=== PATIENT | male | born 1960 | race Caucasian/White ===

== ENCOUNTER → 2024-07-18 12:04 | Outpatient (REF) | payer MEDICARE, SELFPAY | LOC: HWRAD 12:04 | PROVIDERS: ATTENDING PHYSICIAN Physician Assistant Medical | DX: J18.9 Pneumonia, unspecified organism (principal) | CPT/HCPCS: 71046 ==

== ENCOUNTER 2024-10-28 22:50 | Inpatient (IN) | payer MEDICARE, SELFPAY ==
[2024-10-28] VITALS (8 sets, daily range): BP systolic 106–184; BP diastolic 66–137; BMI 37.3
[2024-10-28 18:17] LABS: % Basophils 0.7 % (0-2); % Eosinophils 2.6 % (0-6); % Immature Granulocytes 0.3 % (0-0.5); % Lymphocytes 26.9 % (20.5-51.1); % Monocytes 7.1 % (1.7-9.3); % Neutrophils 62.4 % (42.2-75.2); Absolute Basophils 0.1 10^3/uL (0-0.2); Absolute Eosinophils 0.2 10^3/uL (0-0.7); Absolute Lymphocytes 2.4 10^3/uL (1.2-3.4); Absolute Monocytes 0.6 10^3/uL (0.1-0.6); Absolute Neutrophils 5.5 10^3/uL (1.4-6.5); Hematocrit 43.4 % (39.0-52.0); Hemoglobin 14.1 g/dL (13.0-18.0); Mean Corp Hgb Conc. 32.5 g/dL (33.0-37.0); Mean Corpuscular Volume 95.4 fL (80.0-94.0); Mean Platelet Volume 10.5 fL (7.4-10.4); Nucleated Red Blood Cells % 0 % (-); Platelet Count 196 10^3/uL (130-400); Red Blood Cell Count 4.55 10^6/uL (4.70-6.10); Red Cell Dist. Width 12.7 % (11.5-14.5); White Blood Cell Count 8.9 10^3/uL (4.8-10.8)
[2024-10-28 18:31] LABS: ALT (SGPT) 19 U/L (0-50); AST (SGOT) 17 U/L (17-59); Albumin 4.2 g/dl (3.5-5.0); Alkaline Phosphatase 50 U/L (38-126); Blood Urea Nitrogen 22 mg/dl (9-20); Calcium 9.6 mg/dl (8.4-10.2); Carbon Dioxide 27 mmol/L (22-30); Chloride 109 mmol/L (98-107); Glucose 222 mg/dl (70-99); Sodium 142 mmol/L (135-145); Total Bilirubin 0.7 mg/dl (0.2-1.3); Total Protein 7.7 g/dl (6.3-8.2); eGFR > 60.00
[2024-10-28 18:40] LABS: Troponin I 0.478 ng/ml
[2024-10-28 20:26] LABS: NT-proBNP 2260 pg/ml
[2024-10-28] MEDS: LOW STRENGTH ASPIRIN 324 MG PO (20:35)
[2024-10-28] MEDS: LASIX 40 MG IV (20:35)
--- NOTE | 2024-10-28 21:24 | CON.CAR ---
Consultation
Consultation Request
Date/Time Consultation Requested: 10/28/24 0930
Date/Time Consultation Performed: 10/28/34 1000
Requesting Provider: Dr Dyer
Performing Provider: Dr Ojeda
Reason for Consultation: HF and abnormal troponin
Medical History
-
History of Present Illness:
64 year old with history of HTN, DM, aifb ( episode 2007), nonischemic CM prior DVT and IVC filter who presents with shortness of breath patient's noticed some shortness of breath this week mostly notices it in the morning when he gets up to walk
around but says it is fine the rest of the day. A couple nights ago he woke up to the go go to the bathroom and and was short of breath and then sat up in a chair. However this was the only night that he had shortness of breath. Today he walked
from the car to [facility] and after he sat down noticed he was short of breath and decided to come to the ER. He denies having chest pain or chest discomfort he has had some intermittent fullness that is in the epigastrium. Episodes are random and
last 5 minutes last episode about 2 days ago. He tends to have GI symptoms with some distention and sometimes symptoms are improved with belching he also has had fluctuating constipation and diarrhea.
He has not seen a safe and vault service mechanic since 2012. Last visit was with Dr. Finney in the past he was noted to have a nonischemic cardiomyopathy and there are varying measures of his ejection fraction. Echocardiogram in August 2012 with EF 45 to 50%,
cardiac catheterization with ejection fraction 39%, echocardiogram February 2013 with ejection fraction 25% and then a MUGA scan in April 2013 with ejection fraction of 51%
seen by Dr Rodriguez in [place] . Last visit . he had prior nonischmic CM, mild CAD by cath. he had echo with redeced LVF and then a couple months later had MUGA scan with EF 51%
Has not seen a safe and vault service mechanic in many years
PMH
HTN,
DM,
aifb ( episode 2007),
previous nonischemic CM
prior DVT
IVC filter
ECG NSR with IVCD and no acute changes
CXR 10/28/24 cephalizationa dn small pleural effusions
cath 2012 EF 39% LAD 20%, idagonal 4050%. LCX [place] irreg. RCA luminal irreg
echo 08/2012 EF 45-50%
echo with definity 02/2013 EF 25%
Muga 04/2013 EF 51%
Past Medical History
Past Medical History: Other (as noted in HPI)
Social History
Tobacco: Non-Smoker
Family History
Family History: Cancer (Mother with lung cancer)
Allergies / Home Medications
Allergy/AdvReac Type Severity Reaction Status Date / Time
Penicillins Allergy Anaphylaxis Verified 10/28/24 17:46
Tetanus Vaccines and Toxoid Allergy Anaphylaxis Verified 10/28/24 17:46
[Tetanus]
�Medication �Instructions �Recorded �Confirmed �Type
lisinopril 10 mg tablet 10 mg PO DAILY 06/23/13 10/28/24 History
metformin 500 mg tablet 1,000 mg PO BID 06/23/13 10/28/24 History
aspirin 81 mg tablet,delayed 81 mg PO DAILY 10/28/24 10/28/24 History
release
bexagliflozin 20 mg tablet 20 mg PO DAILY 10/28/24 10/28/24 History
(Brenzavvy)
calcium carbonate 500 mg PO DAILY 10/28/24 10/28/24 History
cholecalciferol (vitamin D3) 25 25 mcg PO DAILY 10/28/24 10/28/24 History
mcg (1,000 unit) tablet (Vitamin
D3)
cranberry fruit 450 mg tablet 450 mg PO DAILY 10/28/24 10/28/24 History
(cranberry)
cyanocobalamin (vitamin B-12) 1,000 mcg PO DAILY 10/28/24 10/28/24 History
1,000 mcg tablet
garlic 400 mg tablet 400 mg PO DAILY 10/28/24 10/28/24 History
glipizide 10 mg tablet, extended 10 mg PO DAILY 10/28/24 10/28/24 History
release 24 hr
glucosamine sulf dipot 1 cap PO DAILY 10/28/24 10/28/24 History
chlr,msm,chond 550 mg-C 30 mg-ervin
1 mg capsule (Glucosamine
Chondroitin)
omega 9-kcj-tsn-fish oil 1,000 mg 1 cap PO DAILY 10/28/24 10/28/24 History
(120 mg-180 mg) capsule (Fish Oil)
therapeutic multivitamin 1 tab PO DAILY 10/28/24 10/28/24 History
vitamin A 3,000 mcg (10,000 unit) 3,000 mcg PO DAILY 10/28/24 10/28/24 History
capsule
zinc sulfate 50 mg zinc (220 mg) 50 mg PO DAILY 10/28/24 10/28/24 History
tablet
Review of Systems
-
All other systems: Negative unless noted
Physical Exam
Vital Signs
Temp Pulse Resp BP Pulse Ox
98.1 F 76 22 126/94 96
10/28/24 17:47 10/28/24 17:47 10/28/24 17:47 10/28/24 19:37 10/28/24 17:47
Lab Results
10/28/24 18:05
10/28/24 18:05
Troponin I 0.478 ng/ml H* 10/28/24 18:05
Oeq-N-Dktmvibbjuh Pept 2260 pg/ml 10/28/24 18:05
Physical Exam
General: Other (Awake alert cooperative no acute distress)
HEENT: Normocephalic, Anicteric and Other (Extraocular was intact external ear and oral exam unremarkable)
Respiratory: Other (No wheezes rales or rhonchi)
Cardiac: Regular Rhythm (No murmur rub or gallop)
GI: Soft, Non Tender, Non Distended and Other (No masses or Passman megaly detected.)
Musculoskeletal: No Clubbing, No Cyanosis and Other (Mild edema right greater than left)
Neuro: Awake, Alert and Oriented
Hematologic/Lymphatic: No Lymphadenopathy
Psych: Calm
Impression / Plan
-
.
Shortness of breath. Symptoms noted for a week. Chest x-ray report with cephalization and small effusions patient also with elevation in BNP. Also with prior history of nonischemic cardiomyopathy. All the above are suggestive of acute left heart
failure. Patient has not had a cardiac evaluation since 2013 prior history of nonischemic cardiomyopathy with a lot of variability of the measured EF's as noted in HPI.
- Diuresis with IV Lasix. Will assess response of dose that was already given. Patient seems to be having significant output
- Aspirin
- Serial troponins
- Echocardiogram this admission
- Will need additional assessment for coronary artery disease
.
Elevated troponin. Number one 0.478 number two 0.467 exact cause of troponin elevation unclear. Patient's had some intermittent epigastric fullness this week. Pattern is atypical. Not associated with exertion, not associated with shortness of
breath and but it is associated with a lot of his GI symptomatology. Not clear that this represents angina. Will monitor for recurrent symptoms
- Continue to monitor troponins to see that they are truly trending downward as the second troponin would suggest
- Echocardiogram this admission.
- With prior history of mild nonobstructive coronary artery disease and presentation with CHF I would favor cardiac catheterization this admission
-Lipid profile
.
Diabetes. Management as directed by primary team
.
Hypertension. Blood pressure currently stable. Monitor.
.
Distant h/o DVT and IVC filter (post hip surgery)
Data Reviewed
-
EKG: Tracing Personally Visualized and interpreted
Medical Tests (Nuc Med, Echo etc): Report Reviewed by me
Labs: Labs Reviewed by me
Old Records: Reviewed (reviewed prior records from last [facility] office visit 2012)
--- NOTE | 2024-10-28 21:24 | ED.GENMED ---
History of Present Illness
General
Chief Complaint: Chest Pain
Source: patient and spouse
Time Seen by Provider: 10/28/24 19:10
History of Present Illness
History of Present Illness:
64-year-old male presents to the emergency room complaining of fullness in his chest, irregular heartbeat, some shortness of breath. Patient has been experiencing some shortness of breath particularly In the morning. When he exerts himself in the
morning he feels more short of breath but this does start to feel better after as the morning progresses. Patient also has a sensation of fullness which seem to occur while he was ambulating today. He and his are getting ready to go out
somewhere and decided he needed to come get Checked out because of the shortness of breath and fullness. Patient had an episode of indigestion and fullness about a week ago while visiting his son. He assumed this was related to something he ate
but he has not felt 100% since then.
Past History
Past History
ED Past Medical History: Arrthythmia (Atrial fibrillation), HTN, NIDDM and Other (Avascular necrosis of both hips)
ED Past Surgical History: Other (History of vasectomy, cardioversion for A. fib)
Social History
Tobacco: Non-smoker
Alcohol: None
Drug: None
Personal:
Living: with family
Employment: Employed
Family History
Family History: Other
Phy Exam
Physical Exam
Physical Exam:
General: Awake, Alert, Oriented X3. No acute distress. High BMI
Vitals: Normotensive perhaps slightly tachypneic
Head: Atraumatic
Eyes: Pupils equal, EOMI
Throat: Airway intact, no exudates
Neck: Trachea midline
Lungs: Crackles bilateral bases
Heart: Regular rate, no murmurs
Abd: Soft, Nontender, No pulsatile mass
Neuro: Nonfocal
Skin: Warm, dry, no rash
Extremities: pulses equal b/l, 2+ edema
Scores
Heart Score for Chest Pain Patients
STEMI patient?: No
History: Moderately Suspicious
ECG: Nonspecific Repolarization
Age: >/= 65 years
Risk Factors: >/= 3 Risk Factors or History of CAD
Troponin: >/= 3 x Normal Limit
Heart Score for Chest Pain Patients: 8
Heart Score Risk: 72.7 % MACE over next 6 weeks
Course
Orders/Labs/Results
Orders:
Orders
10/28/24 17:40
EKG [Electrocardiogram (*1)] Urgent
Reason for Study: Chest Pain
EKG- Treatment ONCE
10/28/24 17:50
Cardiac Monitoring- Treatment ONCE
IV Insert/Care/Rem.- Treatment PRN
O2 Therapy [RESP] Urgent
Titrate/Wean O2 to maintain O2 sat greater than (%): 90
Special Instructions: Maintain sats >/=90%
Pulse Ox/spot Check [RESP] Urgent
Quantity: 1
Special Instructions: ON ROOM AIR
10/28/24 18:05
Complete Blood Count/With Diff Urgent
Comprehensive Metabolic Panel Urgent
NT-proBNP Urgent
Comment: ADD ON
TSH Reflex To Free T4 Urgent
Comment: ADD ON
Troponin I Urgent
10/28/24 19:19
Electrocardiogram (*1) Urgent
Reason for Study: Chest Pain
EKG- Treatment ONCE
10/28/24 19:23
Add On- LAB Urgent
Tests Added?: bnp
CR Chest - 2 Views Urgent
Comment:
Reason For Exam: sob, chest discomfort
10/28/24 20:26
Furosemide [Lasix] 40 mg IV NOW STA
10/28/24 20:27
Aspirin Chewable [Low Strength Aspirin] 324 mg PO NOW STA
10/28/24 21:25
EKG [Electrocardiogram (*1)] Urgent
Reason for Study: Chest Pain
10/28/24 21:36
Troponin I Urgent
10/28/24 21:49
Add On- LAB Urgent
Tests Added?: tsh with rogerio t4
10/28/24 21:53
Heparin 4,000 units IV NOW STA
Nursing to Place Non Medication Order As Directed
Physician Order: PTT 6 hours after initial start of Heparin infusion
10/28/24 21:59
PTT Urgent
Comment: Obtain baseline before beginning heparin infusion if not already collected
10/28/24 22:00
Heparin 38267 Units/250 ml 25,000 units in 250 ml IV PER PROTOCOL
Weight to be used for heparin protocol in kilograms (kg):: 135.5
Protocol:: Cardiac Tx/Acute Coronary
PTT Goal Range to be used:: PTT 73 to 111 seconds
Order type:: Initial
INITIAL Infusion Dose (UNITS/KG/hr) & then follow protocol:: 12 units/kg/hr
Infusion Dose in UNITS/hr & then follow protocol (UNITS/hr):: 1,000
INFUSION RATE in mL/hr & then follow protocol (mL/hr):: 10
PTT less than or equal to 64 seconds:: Increase rate by 200 units/hr (+ 2 mL/hr)
PTT 64.1 to 72.9 seconds:: Increase rate by 100 units/hr (+ 1 mL/hr)
PTT 73 to 111 seconds:: Target Range. No change in rate.
PTT 111.1 to 130.9 seconds:: Decrease rate by 100 units/hr (- 1 mL/hr)
PTT 131 to 199.9 seconds:: HOLD for 1 hr. Then decrease rate by 200 units/hr (- 2 mL/hr)
PTT greater than or equal to 200 seconds:: HOLD for 2 hrs & Notify Provider. Then decrease by 200 units/hr (-
2 mL/hr)
Lab follow-up:: Each change, PTT q6h until 2 consecutive are therapeutic. Then PTT
daily.
10/28/24 22:36
Admit/Transfer Patient As Directed
Co-Sign Provider:
Level of Care: Inpatient admission
Assign to:: Telemetry
Physician / Group: tam arredondo
Diagnosis: acute chf, conc cardiomyopathy, nstemi
Reason for Telemetry: Acute Heart Failure
Date to Stop Telemetry: 10/31/24
Time to Stop Telemetry: 11:00
Reason for Hospitalization: acute chf, conc cardiomyopathy, nstemi
Expected length of stay greater than two midnights?: Yes
ELOS- Estimated Length of Stay in days: 3
I certify the patient meets the requirements for IP care: Yes
Code Status As Directed
Resuscitation Status: Full Code
CARDIOLOGY CONSULT Routine
Consulting Provider: Mo Ojeda
Was physician already notified: Yes
Reason for consult: acute chf, nstemi
10/28/24 22:39
PRN Pain Medication Management As Directed
May give lesser potent ordered pain med per pt: Yes
preference::
Protocol:: Medication orders for pain may be administered in a
manner that supports deferring to patient preference
when the pt is:
- Requesting an ordered lesser potent pain medication.
Least to most potent pain medications are defined
as: acetaminophen < NSAID < tramadol < opioids
(morphine, oxycodone, hydromorphone).
- Requesting a lesser dose of the same medication IF
ORDERED.
- Requesting a less intrusive route of administration
if both routes are prescribed by the provider (PO <
IV).
10/28/24 23:00
Flush (0.9% Sodium Chloride) [Flush (Nss)] See Dose Instructions IV PER PROTOCOL
10/29/24 00:30
Troponin I Urgent
10/31/24 11:00
DC Protocol for Telemetry ONCE
Abnormal Lab Results
10/28/24 10/28/24
18:05 21:36
RBC 4.55 L 10^6/uL
(4.70-6.10)
MCV 95.4 H fL
(80.0-94.0)
MCHC 32.5 L g/dL
(33.0-37.0)
MPV 10.5 H fL
(7.4-10.4)
Chloride 109 H mmol/L
(98-107)
BUN 22 H mg/dl
(9-20)
Glucose 222 H mg/dl
(70-99)
Troponin I 0.478 H* ng/ml 0.467 H* ng/ml
10/28/24 18:05
10/28/24 18:05
Vital Signs
Initial and Last Documented VS:
Initial Vital Signs
Temp Pulse Resp BP Pulse Ox
98.1 F 76 22 140/79 96
10/28/24 17:47 10/28/24 17:47 10/28/24 17:47 10/28/24 17:47 10/28/24 17:47
Last Documented Vital Signs
Temp Pulse Resp BP Pulse Ox
98.1 F 84 19 137/68 93
10/28/24 17:47 10/28/24 21:30 10/28/24 21:30 10/28/24 21:00 10/28/24 21:30
MDM/Problems Addressed
Differential Diagnosis Includes:
NSTEMI, angina, heart failure, GERD
MDM/Problems Addressed:
Patient presents with shortness of breath, and some intermittent chest discomfort. Patient has LVH on his EKG but no acute ischemic changes. His troponin is elevated at 0.4. Chest x-ray shows pulmonary edema. Reviewed patient's previous records
including a cath report from 2012. He did have some mild coronary artery disease at that time for which medical management was the appropriate treatment. Patient also had reduced ejection fraction on echo's back in 2012. Patient seemed to be lost
to follow-up so no further cardiac testing information available. Unclear if the elevated troponin is elevated to an ischemic event or simply congestive heart failure. The patient will require hospitalization. Will diurese with IV Lasix. Case
discussed with Dr. Ojeda. She will initiate heparin for now.
Chronic conditions affecting care: DM, HTN, CAD and Arrhythmia (Atrial fibrillation)
*Radiology
Radiology exam reviewed: preliminary read by ED provider (Pulmonary edema, perhaps some tiny left lower effusion)
*Pulse Oximetry
Patient hypoxic: no
*EKG
Interpreted by ED Provider?: Yes
Interpretation: abnormal
Heart Rate: 98
Rate: normal
Rhythm: sinus and PVC's
Interval: other (Nonspecific intraventricular conduction delay)
QRS Pattern: left vent hypertrophy
Ischemia: non-specific ST changes
*Student Life Coordinator Interpretation
Rate: normal
Interpretation: abnormal
Rhythm: sinus and PVC's
*Critical Care Note
Total Time (30-74mins, 75-104mins- exclusive of procedures): 35 min
comment:
Critical care statement: A total of 35 minutes of critical care time was provided for this patient. This includes management of unstable vital signs, evaluation of the patient at bedside, reviewing the patient's pertinent medical records, discussion
with consultants, review of old EKGs and review of pertinent medical records. This time with separate from time utilized to perform the aforementioned documented procedures
ED Attending Note
-
Portions of this chart may have been created with voice recognition software.� Occasional wrong word or��sound alike� substitutions may have occurred due to the inherent limitations of voice recognition software.
Discharge Plan
Departure
Patient Disposition: Admit
Date of Disposition: 10/28/24
Time of Disposition: 21:25
Admit to: Telemetry
Presentation/result/management discussed w/ accepting MD/DO: Hospitalist
Condition: Fair
Discharge Problem:
CHF (congestive heart failure), Non-ST elevation [place] (NSTEMI)
Prescriptions:
No Action
lisinopril 10 MG tablet
10 mg PO DAILY
metformin 500 MG tablet
1,000 mg PO BID
glipizide 10 mg Tablet Extended Release 24hr
10 mg PO DAILY
cyanocobalamin (vitamin B-12) 1,000 mcg Tablet
1,000 mcg PO DAILY
Theragen Tablet
1 tab PO DAILY
aspirin 81 mg Tablet,Delayed Release (Dr/Ec)
81 mg PO DAILY
zinc sulfate 50 mg zinc (220 mg) Tablet
50 mg PO DAILY
vitamin A 3,000 mcg (10,000 unit) Capsule
3,000 mcg PO DAILY
calcium carbonate [Calcium 500] 500 mg calcium (1,250 mg) Tablet
500 mg PO DAILY
garlic 400 mg Tablet
400 mg PO DAILY
cholecalciferol (vitamin D3) [Vitamin D3] 25 mcg (1,000 unit) Tablet
25 mcg PO DAILY
omega 8-mku-ytr-fish oil [Fish Oil] 1,000 (120-180) mg Capsule
1 cap PO DAILY
cranberry 450 mg Tablet
450 mg PO DAILY
Glucosamine Chondroitin 550-30-1 mg Capsule
1 cap PO DAILY
bexagliflozin [Brenzavvy] 20 mg Tablet
20 mg PO DAILY
Referrals:
Miryam Rosales DO [Family Provider] -
Interventions
Interventions:
*Risk Screen - Suicide Last Done: 10/28/24 17:47
*General Assessment Last Done: 10/28/24 17:47
*Neglect/Abuse Screening Last Done: 10/28/24 17:47
ED- Cardiac Assessment Last Done: 10/28/24 19:28
Discharge Date and Time
Print Language: GERMAN
--- NOTE | 2024-10-28 21:28 | HPS.HSE ---
Family Physician
-
Family Physician: Miryam Rosales, DO
Chief Complaint
-
Fullness sensation in chest, orthopnea, irregular heartbeat
History of Present Illness
64-year-old male complaining of fullness in his chest. He feels as though his heart is irregular. He also complains of waking up feeling short of breath and then it goes away over the past couple days to about a week so he slept in a recliner. He
has bilateral lower leg nonpitting +1 edema. He denies current chest pain, palpitations, lightheadedness, dizziness, fever, chills, shortness of breath, cough, abdominal pain, nausea, vomiting, diarrhea, urinary symptoms, recent travel. He was
noted to have episodes of bradycardia on the monitor with heart rate as low as 40 bpm and frequent PACs then quickly resolves to 80 bpm asymptomatic. He maintained pulse ox of 94% during these episodes with blood pressure of 137/68. He states he
had history of HTN, DM 2, A-fib cardioversion in 2007 at [facility] he had a stress test in 2011 before bilateral hip replacements in 2011, [address] Dixon. Provoked DVT 2012 after left hip replacement, elective IVC filter placed before
right hip replacement 2012., Class II obesity., Cardiomyopathy 2012 EF 45%, February 2013 25%. He states he took all of his a.m. medications he did not take his evening metformin. In the ER he was noted to have elevated troponin of 0.478 in the
ER with EKG sinus rhythm and occasional PVCs.
Medical History
Past Medical History
Past Medical History: Reports Other
Additional Past Medical History:
Cardiomyopathy 2012
2D echo 02/08/2013 severe global hypokinesis EF 20-25% no valvular abnormalities
2D echo 09/02/2012 EF 45-55% difficult study grossly normal LV size LV function mildly impaired right ventricle not well visualized
HTN
DM 2
A-fib cardioversion in 2007 at [facility]
Provoked DVT 2012 after left hip replacement
Elective IVC filter placed before right hip replacement 2012
Class II obesity.
Past Surgical History: Reports Other
Additional Past Surgical History:
stress test in 2011 before bilateral hip replacements
Bilateral hip replacements in 2011, [address] Dixon. Provoked DVT 2012 after left hip replacement, elective IVC filter placed before right hip replacement 2012.
Cardiac cath 07/22/2012:LAD: 20-30% mid stenosis in the LAD proper. The third diagonal branch is a moderate-sized vessel with 40-50% mid stenosis
Circumflex: Mild luminal irregularities
Social History
Tobacco: Non-smoker
Alcohol: None
Drug: None
Personal:
Living: With Family ( Jerri)
Family History
Family History: Other (Mother history HI, brother history multiple MIs in his early 60s history of CABG)
Allergies / Home Medications
Allergies reflects when Allergies were last updated in [employer].
Home Medications with original date entered in [employer]
Allergy/Medication List:
Allergies
Allergy/AdvReac Type Severity Reaction Status Date / Time
Penicillins Allergy Anaphylaxis Verified 10/28/24 17:46
Tetanus Vaccines and Toxoid Allergy Anaphylaxis Verified 10/28/24 17:46
[Tetanus]
Home Medications
lisinopril 10 mg tablet 10 mg PO DAILY 06/23/13
metformin 500 mg tablet 1,000 mg PO BID 06/23/13
aspirin 81 mg tablet,delayed release 81 mg PO DAILY 10/28/24
bexagliflozin 20 mg tablet (Brenzavvy) 20 mg PO DAILY 10/28/24
calcium carbonate 500 mg PO DAILY 10/28/24
cholecalciferol (vitamin D3) 25 mcg (1,000 unit) tablet (Vitamin D3) 25 mcg PO DAILY 10/28/24
cranberry fruit 450 mg tablet (cranberry) 450 mg PO DAILY 10/28/24
cyanocobalamin (vitamin B-12) 1,000 mcg tablet 1,000 mcg PO DAILY 10/28/24
garlic 400 mg tablet 400 mg PO DAILY 10/28/24
glipizide 10 mg tablet, extended release 24 hr 10 mg PO DAILY 10/28/24
glucosamine sulf dipot chlr,msm,chond 550 mg-C 30 mg-ervin 1 mg capsule (Glucosamine Chondroitin) 1 cap PO DAILY 10/28/24
omega 5-eea-nck-fish oil 1,000 mg (120 mg-180 mg) capsule (Fish Oil) 1 cap PO DAILY 10/28/24
therapeutic multivitamin 1 tab PO DAILY 10/28/24
vitamin A 3,000 mcg (10,000 unit) capsule 3,000 mcg PO DAILY 10/28/24
zinc sulfate 50 mg zinc (220 mg) tablet 50 mg PO DAILY 10/28/24
Review of Systems
-
History Source: Patient and Family ( Jerri at bedside)
A 12 point ROS was completed and negative except as noted: Yes
Constitutional: Denies Fever or Fatigue
EENT: Denies Sore Throat or Runny Nose
Respiratory: Reports Trouble Breathing (Orthopnea); Denies Cough
Cardiac: Reports Chest Pain (Fullness sensation in chest) and Palpitations; Denies Diaphoresis or Syncope
Abdomen/GI: Denies Abdominal Pain, Nausea, Vomiting, Diarrhea, Constipated or Bloody Stools
: Denies Dysuria, Frequency, Flank Pain, Incontinence or Difficulty Voiding
Musculoskeletal: Reports Edema (+1 nonpitting); Denies Joint Pain
Skin: Denies Itching or Rash
Neurological: Denies Dizzy, Headache or Weakness
Endocrine: Reports No Symptoms
Hematologic/Lymphatic: Reports No Symptoms
Psych: Reports Calm
Physical Exam
Vital Signs
Vital Signs
Temp Pulse Resp BP Pulse Ox
98.1 F 76 22 126/94 96
10/28/24 17:47 10/28/24 17:47 10/28/24 17:47 10/28/24 19:37 10/28/24 17:47
Physical Exam
General: Comfortable, Conversant and Obese (Class II obesity); No Fever or Chills
HEENT: NormoCephalic, Anicteric, PERRLA, [place] Conjunctivae and No Ptosis
Respiratory: Clear; No Wheezes, Rales or Rhonchi
Cardiac: S1/S2 and Other (Heart rate regular rhythm 80s with multiple PACs then down to 40 sinus bradycardia); No Murmur, Rub or Gallop
Breast: Deferred by me
GI: Soft, Non Tender, Non Distended, Normal Bowel Sounds and No Hepatosplenomegaly
Rectal: Deferred by Provider
Genito-urinary: Deferred by me
Musculoskeletal: No Clubbing, No Cyanosis, Edema, Left Lower Extremity (+1 nonpitting) and Edema, Right Lower Extremity (+1 nonpitting); No Edema, Left Upper Extremity or Edema, Right Upper Extremity
Skin: Warm and Dry; No Rash
Neuro: AO x 3, No Motor Deficits, Nonfocal/grossly intact, Cranial Nerves Intact and No Sensory Deficits; No Slurred Speech, Facial Droop, Tremors or Sedated
Psych: Calm
Laboratory Results
-
10/28/24 18:05
10/28/24 18:05
Laboratory Results
Total Bilirubin 0.7 mg/dl (0.2-1.3) 10/28/24 18:05
AST 17 U/L (17-59) 10/28/24 18:05
ALT 19 U/L (0-50) 10/28/24 18:05
Alkaline Phosphatase 50 U/L (38-126) 10/28/24 18:05
Troponin I 0.478 ng/ml H* 10/28/24 18:05
Data Reviewed
-
Diagnostic Radiology: Report Reviewed by me
Lab Data: Labs Reviewed by me
Impression/Plan
-
Impression/plan:
Admit to TELE
#New onset CHF/history of cardiomyopathy 2012
BNP 2260
I/O, daily weights
-IV Lasix 40 mg twice daily
-2D echo
- Seen by Dr. Ojeda at bedside
CXR:Cephalization of vascular flow with prominence of central hilar shadows, suggesting elevated pulmonary venous pressures.
Small bilateral pleural effusions are suggested, new since most recent radiograph.
2D echo 02/08/2013 severe global hypokinesis EF 20-25% no valvular abnormalities
2D echo 09/02/2012 EF 45-55% difficult study grossly normal LV size LV function mildly impaired right ventricle not well visualized
#NSTEMI
#History of stress test 2013 negative per patient [facility]
Troponin 0.478, repeat troponin 0.467
Repeat EKG and follow
-Patient given aspirin 324 mg in ER
- Continue aspirin 81 mg daily
-Would hold any beta-blockers due to frequent episodes of bradycardia
- Hold metformin 1000 mg twice daily
Lasix 40 mg given in er 1700 output
- Will give Lasix 40 mg twice daily IV
- 2D echo
- Consult CBC cardiology
Cardiac cath 07/22/2012CORONARY ANGIOGRAPHY
Dominance: Right
Left Main: Normal
LAD: 20-30% mid stenosis in the LAD proper. The third diagonal branch is a moderate-sized vessel with 40-50% mid stenosis
Circumflex: Mild luminal irregularities
RCA: Mild luminal irregularities in the PDA otherwise normal
CONCLUSIONS
1: Left ventricular enlargement with moderate global hypokinesis with EF 39%
2: Very mild nonobstructive CAD as described
3. Findings consistent with diagnosis of idiopathic dilated cardiomyopathy
4. Recommend medical therapy for left ventricular dysfunction and interval assessment of systolic function
5. There are no cardiac contraindications to proceeding with hip replacement therapy
#Frequent episodes of Pac's/bigemny
Heart rate going to 40 bpm then converting to 80 bpm with frequent PACs�patient asymptomatic
#HTN�benign
BP 126/94
Continue lisinopril 10 mg daily
#DM 2
Accu-Cheks with SSI, check HgbA1c
BS 222
- Hold metformin 1000 mg twice daily
- Hold glipizide 10 mg daily
- Brenzavvy 20 mg daily
#Past history A-fib 2007 status post cardioversion [facility]
#Left hip replacement 02/29/2012
# Hx provoked from above hip replacement�occlusive thrombus throughout the femoral vein, popliteal vein and nonocclusive thrombus in the posterior tibial vein 09/02/2012
# Hx nonocclusive thrombus left popliteal vein likely representing recanalization of previously visualized left popliteal thrombus 01/20/2013
# Elective IVC filter placed prior to right hip replacement 03/13/2013
# Right hip replacement 03/15/2013
#Class II obesity BMI 37.3 KG
Affects all aspects of care
Recommend weight loss
- Healthy heart diet
DVT prophylaxis
Subcu heparin
Full code
--- NOTE | 2024-10-28 21:48 | W.PN.UPDATE ---
Update Note
Progress Note Update
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 I agree the findings mentioned physical. I concur with assessment and plan unless stated otherwise.
Briefly, this is a 64-year-old male with past medical history significant for ehr-otpujmh-mniowtuno diabetes, hypertension, prior history of atrial fibrillation status post cardioversion and not currently on rate control agent oral anticoagulation,
remote history of DVT in the setting of hip surgery who presents to the emergency department after feeling chest discomfort today.
According to family members patient has been having intermittent chest symptoms over the last 1 week. He reports having palpitations with 1 episode of dizziness during that time. Today he was so walking to discharge when he felt short of breath.
He reports mild chest tightness. He denies any nausea vomiting or diaphoresis. He denies any new swelling in his lower extremities but appears to have some baseline swelling. Denies general orthopnea however when 1 evening he did have an episode
where he had to get up from bed to sleep in a recliner for comfort. He denies any cough fevers or chills.
Patient denies known history of CAD stating that his last stress test was several years ago and he did not require a cath following the stress test.
On arrival in the emergency department the patient was afebrile, blood pressure was 126/90 with a pulse of 76 satting 96% on room air.
ECG shows sinus rhythm at a rate of 98 with PACs. Telemetry shows transient episodes of sinus bradycardia with significant sinus arrhythmia. No acute ST or T wave changes. Troponin was elevated at 0.4, BNP was elevated at 2260.
Chest x-ray shows increased pulmonary venous congestion but no acute interstitial edema pleural effusion or opacifications. The CBC was unremarkable. Electrolytes were normal. BUN/creatinine were normal. Glucose was 122.
He is currently comfortable at rest, not hypoxic and in no acute distress. Denies any sensation of dizziness with these episodes of transient bradycardia to as low as 45. No crackles on exam. Has 1+ non-pitting edema.
Assessment and plan
CHF with possible ischemic injury vs NIMI.
1. NSTEMI - No chest pain, HD stable.
- admit to ivu
- trend troponins
- start heparin if rising
- s/p asa 324, continue asa 81 daily
- ntg prn chest pain is SBP stable.
- check cardiovascular panel and a1c
- echo in am
- cardiology consulted and aware
2. CHF - New onset CHF, suspect related to ischemia but may be the cause of troponin leak. Says has 'large' but not enlarged heart.
- lasix 40 iv bid
- i/o and daily weights
- continue the sgltII inhbition for now
- further GDMT pending echo
3. Sinus ailyn - transient sinus ailyn with episodes of palpitations. Currently asymptomatic
- check tsh
- keep K, Mag appropriate
- no b blockade for now
4. AFIB - h/o pAFIB s/p cardioversion without recurrence. currently sinus.
- telemetry
- will meet AC criteria if having afib now
5. h/o DVT - h/o provoked DVT 2012 s/p IVC filter
- dvt ppx with lovenox if not on heparin gtt
6. DM II - Mild hyperlgycemica
- holding metformin for now
- holding glipizide
- continue sgltII inh
- sliding scale insulim
Code status - Full Code
[2024-10-28 22:08] LABS: Troponin I 0.467 ng/ml
[2024-10-28 22:17] LABS: APTT 27.4 Sec (23.4-35.0)
[2024-10-28] MEDS: HEPARIN 4000 UNITS IV (22:27)
[2024-10-28] MEDS: HEPARIN 25000 UNITS/250 ML IV (22:28)
[2024-10-28 23:00] LABS: TSH Reflex To Free T4 2.44 uIU/ml (0.47-4.68)
[2024-10-29] VITALS (7 sets, daily range): BP systolic 103–130; BP diastolic 68–86; BMI 36.2
[2024-10-29 01:16] LABS: Glucose - Point of Care 135 mg/dl (70-99)
[2024-10-29 02:19] LABS: Troponin I 0.557 ng/ml
[2024-10-29 05:07] LABS: % Basophils 0.7 % (0-2); % Eosinophils 3.4 % (0-6); % Immature Granulocytes 0.2 % (0-0.5); % Lymphocytes 30.8 % (20.5-51.1); % Monocytes 7.4 % (1.7-9.3); % Neutrophils 57.5 % (42.2-75.2); Absolute Basophils 0.1 10^3/uL (0-0.2); Absolute Eosinophils 0.3 10^3/uL (0-0.7); Absolute Lymphocytes 2.8 10^3/uL (1.2-3.4); Absolute Monocytes 0.7 10^3/uL (0.1-0.6); Absolute Neutrophils 5.1 10^3/uL (1.4-6.5); Hematocrit 42.8 % (39.0-52.0); Hemoglobin 14.2 g/dL (13.0-18.0); Mean Corp Hgb Conc. 33.2 g/dL (33.0-37.0); Mean Corpuscular Hgb 30.9 pg (27.0-31.0); Mean Corpuscular Volume 93.2 fL (80.0-94.0); Mean Platelet Volume 10.8 fL (7.4-10.4); Nucleated Red Blood Cells % 0 % (-); Platelet Count 186 10^3/uL (130-400); Red Blood Cell Count 4.59 10^6/uL (4.70-6.10); Red Cell Dist. Width 12.7 % (11.5-14.5); White Blood Cell Count 8.9 10^3/uL (4.8-10.8)
[2024-10-29 05:19] LABS: APTT 28.4 Sec (23.4-35.0)
[2024-10-29 05:30] LABS: ALT (SGPT) 17 U/L (0-50); AST (SGOT) 15 U/L (17-59); Albumin 4.1 g/dl (3.5-5.0); Alkaline Phosphatase 50 U/L (38-126); Blood Urea Nitrogen 21 mg/dl (9-20); Calcium 9.4 mg/dl (8.4-10.2); Carbon Dioxide 25 mmol/L (22-30); Chloride 111 mmol/L (98-107); Estimated Creatinine Clearance 119 ml/min; Glucose 157 mg/dl (70-99); HDL Cholesterol 25 mg/dl; LDL Cholesterol, Calculated 118 mg/dl; Sodium 142 mmol/L (135-145); Total Bilirubin 0.8 mg/dl (0.2-1.3); Total Cholesterol 177 mg/dl (50-199); Total Protein 7.5 g/dl (6.3-8.2); Triglyceride 173 mg/dl (10-149); Very Low Density Lipoprotein 34 mg/dl (0-30); eGFR > 60.00
[2024-10-29 05:48] LABS: Troponin I 0.568 ng/ml
--- NOTE | 2024-10-29 07:01 | W.PN.CD ---
Today's Communication / Plan
-
- Diuresis with IV Lasix. negative 1500 ovrnight. Will reduce Lasix dosing to lasix 20mg IV BID
- monitor renal function, labs and weights
- Echocardiogram this admission
- with nonobstructive CAD on cath 2012 and now with new HF and abnormal troponins I would recoomend cath this admit. Reviewed procedure and risks with patient and his . he is in agreement. Continue tx of HF. plan for cath 11/01/23. If worsening
symptoms than can consider sooner. - Continue to monitor troponins until clearly trending down
- Echocardiogram this admission.
- statin
- Lipid profile
- ASA
-IV heparin
- low dose BB
- continue ACEE inhibitor ( does reduced to allow BP room for diuretic and BB
Impression / Plan
-
.
Shortness of breath. Symptoms noted for a week. Chest x-ray report with cephalization and small effusions patient also with elevation in BNP. Also with prior history of nonischemic cardiomyopathy. All the above are suggestive of acute left heart
failure. Patient has not had a cardiac evaluation since 2013 prior history of nonischemic cardiomyopathy with a lot of variability of the measured EF's as noted in HPI.
- Diuresis with IV Lasix. negative 1500 ovrnight. Will reduce Lasix dosing to lasix 20mg IV BID
- monitor renal fnction, labs and weights
- Aspirin
- Echocardiogram this admission
- with nonobstructive CAD on cath 2012 and now with new HF and abnormal troponins I would recoomend caththis admit. Reviewed procedure and risks with patient and his . he is in agreement. Continue tx of HF. plan for cath 11/01/23
.
Elevated troponin. peak 0.57 so far. Possible ACS. Could also be type II or non MT troponin related to HF. . SOB for one week. no CP yesterday but some intermittent epigastric fullness. Alhough this symptoms may go along with his other GI
symptoms. Possibility of angina equivalent
- Continue to monitor troponins till clearly trending down
- Echocardiogram this admission.
- cardiac catheterization this admission. Plan for 10/31/24. If worsenging symptoms than can consider sooner.
- statin
- Lipid profile
- ASA
-IV heparin
- low dose BB
- continue ACEE inhibitor ( does reduced to allow BP room for diuretic and BB
.
ventridlar ectopy. bieminy and couplets
- low dose BB added
.
HTN stable
.
Diabetes. Management as directed by primary team
.
Hypertension. Blood pressure currently stable. Monitor.
.
Distant h/o DVT and IVC filter (post hip surgery)
Physical Exam
Vital Signs/Labs
Vital Signs
Temp Pulse Resp BP Pulse Ox
97.7 F 74 16 123/73 94
10/29/24 05:12 10/29/24 05:12 10/29/24 05:12 10/29/24 05:12 10/29/24 05:12
10/28/24 10/29/24 10/30/24
06:59 06:59 06:59
Actual Weight 131.202 kg
10/29/24 04:52
10/29/24 04:52
APTT 28.4 Sec (23.4-35.0) 10/29/24 04:52
Triglycerides 173 mg/dl (10-149) H 10/29/24 04:52
LDL Cholesterol, Calc 118 mg/dl 10/29/24 04:52
VLDL Cholesterol, Calc 34 mg/dl (0-30) H 10/29/24 04:52
HDL Cholesterol 25 mg/dl 10/29/24 04:52
10/28/24
18:05
Ikq-S-Leiepobkgrf Pept 2260
LAB Results
10/28/24 10/28/24 10/29/24
18:05 21:36 01:45
Troponin I 0.478 H* 0.467 H* 0.557 H*
10/29/24 10/29/24
04:52 06:00
Troponin I 0.568 H* Cancelled
Physical Exam
Constitutional: No acute distress
EENT: Anicteric
Cardiovascular: Rhythm & rate is regular
Respiratory: Respiratory effort normal and Other (fine crackles at bases)
GI: Soft, Non tender and Normal bowel sounds
Neuro/Psych: Alert and Oriented
Other: Other (trace edema)
Data Reviewed
-
Date of Service: October 29, 2024
EKG: Report Reviewed by me
Echo: Report Reviewed by me
X-Ray/CT/US/MRI/NUC/PET: Report Reviewed by me
Labs: Labs Reviewed by me
[2024-10-29] MEDS: ASPIR LOW (ENTERIC COATED) 81 MG PO (07:56)
[2024-10-29] MEDS: VITAMIN D3 (cholecalciferol) 25 MCG PO (07:57)
[2024-10-29] MEDS: LOPRESSOR 12.5 MG PO ×2 (07:57→20:00)
[2024-10-29] MEDS: VITAMIN B-12 1000 MCG PO (07:57)
[2024-10-29] MEDS: LIPITOR 40 MG PO (07:57)
[2024-10-29] MEDS: THERAGRAN 1 TABLET PO (07:57)
[2024-10-29] MEDS: ZESTRIL 2.5 MG PO (07:57)
[2024-10-29 07:58] LABS: Glucose - Point of Care 155 mg/dl (70-99)
[2024-10-29] MEDS: LASIX 20 MG IV ×2 (08:02→17:03)
[2024-10-29] MEDS: NOVOLOG FLEXPEN-LOW RESISTANCE 300 UNITS SC (09:16)
--- NOTE | 2024-10-29 10:01 | CM ---
Met with patient and at bedside; initial assessment completed
Pharmacy verified: [facility] @ [address] [place] [address]
Signed IMM on the chart 10/28/24
Patient lives w/ and adult daughter; split level home; 1 step to enter; 3 steps to kitchen; 7-8 steps to master bath/bed; powder room in lower level family room
PLOF: independent with ambulation, stairs, and ADLs; retired; drives
DME: has a glucometer but does not use it
No SNF utilization history; past home health services with [facility] [phone]
will transport home
Plan: discharge to home no needs anticipated
--- NOTE | 2024-10-29 10:57 | PTCARENOTE ---
Transfer orders for pt to IVU, pending cardiac catheterization Wednesday. AVILA Marcos called for report. Pt transferred to unit by this RN. Call [phone] with questions.
--- NOTE | 2024-10-29 11:42 | PTCARENOTE ---
Rec'd Pt [id number], transferred from 3 acute, A,A+Ox3, denies CP, chest heaviness or pressure. He denies SOB, dizziness and lightheadedness. Heparin drip infusing at 1200 units/hr. Pt is in SR on bus driver/monitor, HR 70-80's. O2 sat 96% on RA. BP 109/75.
Pt ambulatory in room, at bedside.
--- NOTE | 2024-10-29 12:03 | W.PN.HOSP.TC ---
Today's Communication/Plan
-
iv diuresis
BB
Hep ggt
ECHO
LHC tentatively Wednesday
Assessment / Plan
Assessment / Plan
Physical Exam
Constitutional: No acute distress
EENT: Anicteric
Cardiovascular: Rhythm & rate is regular
Respiratory: Respiratory effort normal and Other (fine crackles at bases)
GI: Soft, Non tender and Normal bowel sounds
Neuro/Psych: Alert and Oriented
Other: Other (trace edema)
#New onset CHF/history of cardiomyopathy 2012
-BNP 2260
I/O, daily weights
-IV Lasix 20 mg twice daily
-2D echo f/u
-monitor renal function
-BB
-ACEI
#NSTEMI
-Possible CAD v CHF
-ASA
-Hep ggt
-BB
-Cardiac Cath - tentatively Wednesday
-ECHO f/u
#Frequent episodes of Pac's/bigemny
Heart rate going to 40 bpm then converting to 80 bpm with frequent PACs�patient asymptomatic
-monitor with BB
#Essential Hypertension
-BB
Continue lisinopril 10 mg daily
#DM 2
- Hold metformin 1000 mg twice daily
- Hold glipizide 10 mg daily
- Brenzavvy 20 mg daily
#Past history A-fib 2007 status post cardioversion [facility]
#Left hip replacement 02/29/2012
# Hx provoked from above hip replacement�occlusive thrombus throughout the femoral vein, popliteal vein and nonocclusive thrombus in the posterior tibial vein 09/02/2012
# Hx nonocclusive thrombus left popliteal vein likely representing recanalization of previously visualized left popliteal thrombus 01/20/2013
# Elective IVC filter placed prior to right hip replacement 03/13/2013
# Right hip replacement 03/15/2013
#Class II obesity BMI 37.3 KG
#DVT prophylaxis - heparin ggt
Full code
Anticipated Discharge: > 48 hours
Subjective/Interval History
-
Date of Service: October 29, 2024
No acute events overnight
Objective Data
-
Labs:
Laboratory Results
10/29/24 10/29/24
04:52 12:30
WBC 8.9
Hgb 14.2
Hct 42.8
Plt Count 186
APTT 28.4 Pending
Sodium 142
Potassium 4.0
Chloride 111 H
Carbon Dioxide 25
BUN 21 H
Creatinine 0.9
Glucose 157 H
Calcium 9.4
Total Bilirubin 0.8
AST 15 L
ALT 17
Alkaline Phosphatase 50
Vital Signs:
Vital Signs
Temp Pulse Resp BP Pulse Ox
97.9 F 84 22 121/77 93
10/29/24 08:01 10/29/24 08:02 10/29/24 08:01 10/29/24 08:02 10/29/24 09:30
I&O
10/28/24 10/29/24 10/30/24
06:59 06:59 06:59
Intake Total 360 / 360
Output Total 1924
Balance -1565 / -1564
Review of Systems
-
History Source: Patient
All other systems: Not reviewed unless documented
Data Reviewed
-
Diagnostic Radiology: Report Reviewed by me
Labs: Labs Reviewed by me
[2024-10-29 12:25] LABS: Glycohemoglobin (HgbA1c) 7.9 % (4.0-5.6)
[2024-10-29 13:05] LABS: Hematocrit 43.2 % (39.0-52.0); Hemoglobin 14.4 g/dL (13.0-18.0); Mean Corp Hgb Conc. 33.3 g/dL (33.0-37.0); Mean Corpuscular Hgb 30.9 pg (27.0-31.0); Mean Corpuscular Volume 92.7 fL (80.0-94.0); Mean Platelet Volume 10.6 fL (7.4-10.4); Platelet Count 190 10^3/uL (130-400); Red Blood Cell Count 4.66 10^6/uL (4.70-6.10); Red Cell Dist. Width 12.7 % (11.5-14.5); White Blood Cell Count 7.8 10^3/uL (4.8-10.8)
--- NOTE | 2024-10-29 13:13 | CARDSERVLU ---
Echocardiogram with Lumason completed after protocol screening completed. Allergies verified.
Patent IV site: _LAC____
IV site flushed with 0.9% NaCl pre and post administration.
Diluted bolus method utilized to enhance visualization of ventricular flynn.
Total volume given: __3__ mL
Patient tolerated all procedures well without complications.
[2024-10-29] MEDS: NOVOLOG FLEXPEN-LOW RESISTANCE 2 UNITS SC (13:23)
[2024-10-29 13:24] LABS: Glucose - Point of Care 240 mg/dl (70-99)
[2024-10-29 13:27] LABS: APTT 28.3 Sec (23.4-35.0)
[2024-10-29 16:57] LABS: Glucose - Point of Care 153 mg/dl (70-99)
[2024-10-29] MEDS: NOVOLOG FLEXPEN-LOW RESISTANCE 1 UNITS SC (17:01)
[2024-10-29] MEDS: HEPARIN 25000 UNITS/250 ML IV (19:02)
[2024-10-29] MEDS: NON-FORMULARY ITEM 20 MG PO (20:01)
[2024-10-29 20:39] LABS: APTT 29.8 Sec (23.4-35.0)
[2024-10-29 20:56] LABS: Troponin I 0.444 ng/ml
[2024-10-29 22:28] LABS: Glucose - Point of Care 150 mg/dl (70-99)
--- NOTE | 2024-10-29 23:29 | PTCARENOTE ---
Received pt @ change of shift. AAOx3, VSS-- NSR w/ BBB and PVCs on monitor. bedside. Heparin gtt currently running @ 1600 units/hr through left forearm. Denies SOB or CP. Pt and upset about the addition of metoprolol without discussion or
understanding as to why it was added. Report from Dr. Ojeda indicates it was added for 'ventricular ectopy. bigeminy and couplets.' RN discussed this with pt and , printed rhythm strips to demonstrate the different heart rhythms. Receptive to
the information. Discussed plan of care for evening. Pt verbalizes understanding. Call [facility]chell within reach.
[2024-10-30] VITALS (8 sets, daily range): BP systolic 68–126; BP diastolic 50–81; BMI 35.5
[2024-10-30 03:15] LABS: % Eosinophils 3.6 % (0-6); % Immature Granulocytes 0.1 % (0-0.5); % Lymphocytes 34.4 % (20.5-51.1); % Monocytes 6.1 % (1.7-9.3); % Neutrophils 54.8 % (42.2-75.2); Absolute Basophils 0.1 10^3/uL (0-0.2); Absolute Eosinophils 0.3 10^3/uL (0-0.7); Absolute Lymphocytes 2.8 10^3/uL (1.2-3.4); Absolute Monocytes 0.5 10^3/uL (0.1-0.6); Absolute Neutrophils 4.4 10^3/uL (1.4-6.5); Hematocrit 43.3 % (39.0-52.0); Hemoglobin 14.4 g/dL (13.0-18.0); Mean Corp Hgb Conc. 33.3 g/dL (33.0-37.0); Mean Corpuscular Hgb 31.1 pg (27.0-31.0); Mean Corpuscular Volume 93.5 fL (80.0-94.0); Mean Platelet Volume 10.8 fL (7.4-10.4); Nucleated Red Blood Cells % 0 % (-); Platelet Count 202 10^3/uL (130-400); Red Blood Cell Count 4.63 10^6/uL (4.70-6.10); Red Cell Dist. Width 12.7 % (11.5-14.5)
[2024-10-30 03:39] LABS: APTT 29.1 Sec (23.4-35.0)
[2024-10-30 03:58] LABS: ALT (SGPT) 16 U/L (0-50); AST (SGOT) 16 U/L (17-59); Albumin 4.1 g/dl (3.5-5.0); Alkaline Phosphatase 49 U/L (38-126); Blood Urea Nitrogen 26 mg/dl (9-20); Calcium 9.8 mg/dl (8.4-10.2); Carbon Dioxide 28 mmol/L (22-30); Chloride 107 mmol/L (98-107); Estimated Creatinine Clearance 107 ml/min; Glucose 140 mg/dl (70-99); Potassium 4.6 mmol/L (3.5-5.1); Sodium 143 mmol/L (135-145); Total Bilirubin 0.9 mg/dl (0.2-1.3); Total Protein 7.4 g/dl (6.3-8.2); eGFR > 60.00
[2024-10-30 07:28] LABS: Glucose - Point of Care 126 mg/dl (70-99)
[2024-10-30] MEDS: NOVOLOG FLEXPEN-LOW RESISTANCE SC (07:39)
[2024-10-30] MEDS: ZESTRIL 2.5 MG PO (08:21)
[2024-10-30] MEDS: THERAGRAN 1 TABLET PO (08:22)
[2024-10-30] MEDS: LOPRESSOR 12.5 MG PO ×2 (08:22→19:25)
[2024-10-30] MEDS: VITAMIN B-12 1000 MCG PO (08:22)
[2024-10-30] MEDS: NON-FORMULARY ITEM 20 MG PO (08:22)
[2024-10-30] MEDS: LASIX 20 MG IV ×2 (08:22→16:01)
[2024-10-30] MEDS: ASPIR LOW (ENTERIC COATED) 81 MG PO (08:22)
[2024-10-30] MEDS: VITAMIN D3 (cholecalciferol) 25 MCG PO (08:22)
--- NOTE | 2024-10-30 08:24 | W.PN.CD ---
Today's Communication / Plan
-
- Cath in AM
- NPO after midnight.
Impression / Plan
-
.
Shortness of breath. Symptoms noted for a week. Chest x-ray report with cephalization and small effusions patient also with elevation in BNP. Also with prior history of nonischemic cardiomyopathy. All the above are suggestive of acute left heart
failure. Patient has not had a cardiac evaluation since 2012 prior history of nonischemic cardiomyopathy with a lot of variability of the measured EF's as noted in HPI.
- Diuresis with IV Lasix. negative 1500 ovrnight. Will reduce Lasix dosing to lasix 20mg IV BID
- monitor renal fnction, labs and weights
- Aspirin
- Echocardiogram 10/29/24: LVEF slightly worse at 20%
- with nonobstructive CAD on cath 2012 and now with new HF and abnormal troponins I would recoomend cath this admit. Reviewed procedure and risks with patient and his . he is in agreement. Continue tx of HF. plan for cath 11/01/23
.
ACS:
Elevated troponin. peak 0.57 so far. Possible ACS. Could also be type II or non HI troponin related to HF. . SOB for one week. no CP yesterday but some intermittent epigastric fullness. Alhough this symptoms may go along with his other GI
symptoms. Possibility of angina equivalent
- Continue to monitor troponins till clearly trending down
- Echocardiogram 10/29/24 - LVEF 15- 20%. Compared to previous 02/08/2013, the LVEF is slightly worse from 20-25%.
- cardiac catheterization this admission. Plan for 10/31/24. If worsenging symptoms than can consider sooner.
- statin
- Lipid profile
- ASA
-IV heparin
- low dose BB
HFrEF
- LVEF of 20%
- h/o dilated cardiomyopathy since 2012
- Highly skeptical of modern medical management and hopes that Mr. Ta will do miracle for him. So far he was placed on Jardiance and he could not afford. He does not want to take any medications.
- Discussed GDMT - he will consider Aldactone.
- I told him that if he needs a stent, he needs to be compliant with his DAPT.
- continue NGUYEN inhibitor (does reduced to allow BP room for diuretic and BB) Metoprolol added. Discussed GDMT. patient is
.
ventricular ectopy. bigeminy and couplets
- low dose BB added
.
HTN stable
.
Diabetes. Management as directed by primary team
.
Hypertension. Blood pressure currently stable. Monitor.
.
Distant h/o DVT and IVC filter (post hip surgery)
Physical Exam
Vital Signs/Labs
Vital Signs
Temp Pulse Resp BP Pulse Ox
98.1 F 94 20 126/81 98
10/30/24 07:25 10/30/24 07:30 10/30/24 07:25 10/30/24 07:24 10/30/24 07:25
10/29/24 10/30/24 10/31/24
06:59 06:59 06:59
Actual Weight 131.202 kg 129 kg
10/30/24 02:52
10/30/24 02:52
APTT 29.1 Sec (23.4-35.0) 10/30/24 02:52
Triglycerides 173 mg/dl (10-149) H 10/29/24 04:52
LDL Cholesterol, Calc 118 mg/dl 10/29/24 04:52
VLDL Cholesterol, Calc 34 mg/dl (0-30) H 10/29/24 04:52
HDL Cholesterol 25 mg/dl 10/29/24 04:52
10/28/24
18:05
Xma-Y-Tveuygmzsvc Pept 2260
LAB Results
10/28/24 10/28/24 10/29/24
18:05 21:36 01:45
Troponin I 0.478 H* 0.467 H* 0.557 H*
10/29/24 10/29/24 10/29/24
04:52 06:00 20:21
Troponin I 0.568 H* Cancelled 0.444 H*
Physical Exam
Constitutional: No acute distress and Comfortable
EENT: Anicteric and Moist mucous membranes
Cardiovascular: Rhythm/rate is irregular (regularly irregular. ) and Systolic murmur present
Respiratory: Respiratory effort normal and Lungs clear to auscul.
GI: Soft, Non tender and Normal bowel sounds
Neuro/Psych: Alert, Oriented and AO x 3
Data Reviewed
-
Date of Service: October 30, 2024
Medical Decision Making: Reviewed Test Results, Test Interpretation and Review of Case with other Provider
EKG: Tracing Personally Visualized and interpreted
Echo: Tracing Personally Visualized and interpreted and Report Reviewed by me
Labs: Labs Reviewed by me
Old Records: Reviewed
--- NOTE | 2024-10-30 08:29 | W.PN.HOSP.TC ---
Today's Communication/Plan
-
cont hep drip
for cardiac cath in AM
Assessment / Plan
Assessment / Plan
64yo M with PMHx of HFrEF combined with diastolic dysfunction, DM, HTN, obesity and CAD with cath in 2012 without stent placement (mild nonobstructive CAD), came with few days of SOB more feeling like abdominal bloating, found elevated troponin,
consistent with NSTEMI and acute CHF
A/P:
#NSTEMI
#Acute on chronic combined systolic and diastolic CHF
Lasix, daily weight, follow Cr and electrolytes, strict I&O
Echo with EF 25-35% similar to prior, but visually worse LV function
Heparin drip until cath
ASA, statin, BB, ACEi
Cardio consult: cath on 10/31/24
TSH WNL
LDL 118
#DM type 2 with unspecified complications
Accuchecks, insulin SS, DM diet
COnt bexaglifosin
hold Metformin and glipiside
#Essential HTN
#HLD
cont home meds
#Obesity
BMO 35.5
advise to decrease calorie intake
DVT ppx - cont heparin drip
FUll code
I have spent at least 58min reviewing chart, test results, communication with consultants and providing direct patient care
Anticipated Discharge: 24 - 48 hours
Subjective/Interval History
-
Date of Service: October 30, 2024
Objective Data
-
Labs:
Laboratory Results
10/29/24 10/30/24 10/30/24
20:21 02:52 10:00
WBC 8.0
Hgb 14.4
Hct 43.3
Plt Count 202
APTT 29.8 29.1 Pending
Sodium 143
Potassium 4.6
Chloride 107
Carbon Dioxide 28
BUN 26 H
Creatinine 1.0
Glucose 140 H
Calcium 9.8
Total Bilirubin 0.9
AST 16 L
ALT 16
Alkaline Phosphatase 49
Vital Signs:
Vital Signs
Temp Pulse Resp BP Pulse Ox
98.1 F 85 20 126/81 98
10/30/24 07:25 10/30/24 08:21 10/30/24 07:25 10/30/24 08:21 10/30/24 07:25
I&O
10/29/24 10/30/24 10/31/24
06:59 06:59 06:59
Intake Total 360 / 360
Output Total 1925 / 1924 3300 / 3300
Balance -1565 / -1565 -3300 / -3300
Review of Systems
-
History Source: Patient
All other systems: Reviewed and negative
Physical Exam
-
HEENT: Normocephalic
Respiratory: Clear to Auscultation
Cardiac: Regular Rhythm
GI: Soft, Nontender and Nondistended
Musculoskeletal: No Clubbing, No Cyanosis and No Edema
Neuro: Awake, Alert, Oriented and AO x 3
Psych: Calm
--- NOTE | 2024-10-30 09:05 | PTCARENOTE ---
pt is AOx3, no complaints of pain or discomfort. blood sugars monitored, VSS, SR on tele monitor. Heparin gtt infusing per protocol. Independent OOB. Call mitchell within reach.
[2024-10-30] MEDS: HEPARIN 25000 UNITS/250 ML IV ×2 (10:55→23:14)
[2024-10-30 11:15] LABS: APTT 34.4 Sec (23.4-35.0)
[2024-10-30 12:06] LABS: Glucose - Point of Care 186 mg/dl (70-99)
[2024-10-30] MEDS: NOVOLOG FLEXPEN-LOW RESISTANCE 1 UNITS SC ×2 (13:14→17:51)
[2024-10-30] MEDS: LIPITOR 40 MG PO (17:10)
[2024-10-30 17:13] LABS: Glucose - Point of Care 190 mg/dl (70-99)
[2024-10-30 18:06] LABS: APTT 41.8 Sec (23.4-35.0)
[2024-10-30 22:14] LABS: Glucose - Point of Care 172 mg/dl (70-99)
[2024-10-31] VITALS (18 sets, daily range): BP systolic 87–117; BP diastolic 59–76; BMI 35.3
[2024-10-31 02:18] LABS: % Basophils 0.9 % (0-2); % Eosinophils 4.7 % (0-6); % Immature Granulocytes 0.1 % (0-0.5); % Lymphocytes 34.5 % (20.5-51.1); % Monocytes 7.4 % (1.7-9.3); % Neutrophils 52.4 % (42.2-75.2); Absolute Basophils 0.1 10^3/uL (0-0.2); Absolute Eosinophils 0.4 10^3/uL (0-0.7); Absolute Lymphocytes 2.7 10^3/uL (1.2-3.4); Absolute Monocytes 0.6 10^3/uL (0.1-0.6); Absolute Neutrophils 4.1 10^3/uL (1.4-6.5); Hemoglobin 14.1 g/dL (13.0-18.0); Mean Corp Hgb Conc. 33.6 g/dL (33.0-37.0); Mean Corpuscular Hgb 30.9 pg (27.0-31.0); Mean Corpuscular Volume 91.9 fL (80.0-94.0); Mean Platelet Volume 10.4 fL (7.4-10.4); Nucleated Red Blood Cells % 0 % (-); Platelet Count 201 10^3/uL (130-400); Red Blood Cell Count 4.57 10^6/uL (4.70-6.10); Red Cell Dist. Width 12.5 % (11.5-14.5); White Blood Cell Count 7.9 10^3/uL (4.8-10.8)
[2024-10-31 02:28] LABS: APTT 54.2 Sec (23.4-35.0)
--- NOTE | 2024-10-31 02:31 | PTCARENOTE ---
Received pt @ change of shift. AAOx3. VSS-- NSR w/BBB and PVCs on monitor. bedside. Heparin gtt running @ 2200 units/hr through left forearm. Ambulating around room. Discussed plan of care for evening and being NPO for cath procedure. Pt
verbalizes understanding. Call mitchell within reach.
--- NOTE | 2024-10-31 02:34 | PTCARENOTE ---
Pt had a 24 bt run of ZumperT @ [employer]. Pt was asymptomatic. Mag lab was added.
[2024-10-31 03:14] LABS: ALT (SGPT) 17 U/L (0-50); AST (SGOT) 20 U/L (17-59); Alkaline Phosphatase 49 U/L (38-126); Blood Urea Nitrogen 37 mg/dl (9-20); Calcium 9.6 mg/dl (8.4-10.2); Carbon Dioxide 25 mmol/L (22-30); Chloride 107 mmol/L (98-107); Estimated Creatinine Clearance 106 ml/min; Glucose 157 mg/dl (70-99); Magnesium 2.1 mg/dl (1.6-2.3); Potassium 4.2 mmol/L (3.5-5.1); Sodium 140 mmol/L (135-145); Total Bilirubin 0.6 mg/dl (0.2-1.3); Total Protein 7.3 g/dl (6.3-8.2); eGFR > 60.00
[2024-10-31 08:05] LABS: Glucose - Point of Care 145 mg/dl (70-99)
[2024-10-31] MEDS: NOVOLOG FLEXPEN-LOW RESISTANCE SC ×4 (08:05→17:24)
--- NOTE | 2024-10-31 08:32 | W.PN.HOSP.TC ---
Today's Communication/Plan
-
cardiac cath
Assessment / Plan
Assessment / Plan
64yo M with PMHx of HFrEF combined with diastolic dysfunction, DM, HTN, obesity and CAD with cath in 2012 without stent placement (mild nonobstructive CAD), came with few days of SOB more feeling like abdominal bloating, found elevated troponin,
consistent with NSTEMI and acute CHF. Symptoms resolved on diuresis and patient awaiting cardiac cath while on heparin drip
A/P:
#NSTEMI
#Acute on chronic combined systolic and diastolic CHF
Lasix, daily weight, follow Cr and electrolytes, strict I&O
Echo with EF 25-35% similar to prior, but visually worse LV function
Heparin drip until cath
ASA, statin, BB, ACEi
Cardio consult: cath on 10/31/24
TSH WNL
LDL 118
#DM type 2 with unspecified complications
Accuchecks, insulin SS, DM diet
COnt bexagliflozin
hold Metformin and glipizide
#Essential HTN
#HLD
cont home meds
#Obesity
BMO 35.5
advise to decrease calorie intake
DVT ppx - cont heparin drip
FUll code
I have spent at least 38min reviewing chart, test results, communication with consultants and providing direct patient care
Anticipated Discharge: Within 24 hours
Subjective/Interval History
-
Date of Service: October 31, 2024
Objective Data
-
Labs:
Laboratory Results
10/31/24 10/31/24
02:09 08:35
WBC 7.9
Hgb 14.1
Hct 42.0
Plt Count 201
APTT 54.2 H Pending
Sodium 140
Potassium 4.2
Chloride 107
Carbon Dioxide 25
BUN 37 H
Creatinine 1.0
Glucose 157 H
Calcium 9.6
Total Bilirubin 0.6
AST 20
ALT 17
Alkaline Phosphatase 49
Vital Signs:
Vital Signs
Temp Pulse Resp BP Pulse Ox
97.9 F 66 18 106/71 96
10/31/24 07:40 10/31/24 08:00 10/31/24 07:40 10/31/24 07:41 10/31/24 07:40
I&O
10/30/24 10/31/24 11/01/24
06:59 06:59 06:59
Output Total 3300 / 3300 2650 / 2650 300 / 300
Balance -3300 / -3300 -2650 / -2650 -300 / -300
Review of Systems
-
History Source: Patient
All other systems: Reviewed and negative
Physical Exam
-
General: No Apparent Distress
HEENT: Normocephalic
Respiratory: Clear to Auscultation
GI: Soft, Nontender and Nondistended
Neuro: Awake, Alert, Oriented and AO x 3
Psych: Calm
--- NOTE | 2024-10-31 08:33 | PTCARENOTE ---
assumed care at 0700. Patient AO x3, NPO for heart cath today,blood sugar 145. He denies pain or shortness of breath, NSR BBB, weak pedal pulses. Reports since starting IV Lasix he has had less abdominal fullness. at bedside. Call mitchell in
reach
--- NOTE | 2024-10-31 08:39 | PTCARENOTE ---
assumed care at 0700. Patient AO x3, NPO for heart cath today,blood sugar 145. He denies pain or shortness of breath, NSR BBB, weak pedal pulses. Reports since starting IV Lasix he has had less abdominal fullness. at bedside. Call mitchell in reach
[2024-10-31] MEDS: ASPIR LOW (ENTERIC COATED) 81 MG PO (09:02)
--- NOTE | 2024-10-31 09:05 | W.PN.CD ---
Today's Communication / Plan
-
Cardiac catheterization today.
Further therapy will be dictated by these findings.
Impression / Plan
-
Impression/Plan: 64 y/o male with NIDDM, HTN, hx of provoked DVT + IVCF, AF (s/p prior DCCV, no rate control/anticoagulation) and NICMO admitted with increasing dyspnea and elevated troponin concerning for ACS.
#Shortness of breath/HFrEF
-Acute on chronic.
-Highly skeptical of modern medical management and hopes that Mr. Ta will do miracle for him. So far he was placed on empagliflozin and he could not afford. He does not want to take any medications.
-Diuresis with IV furosemide, decreased to 20 mg IV BID yesterday.
-Echocardiogram 10/29/24: LVEF slightly worse at 20%.
-Monitor renal function, labs and weights.
-GDMT:
-Diuretics: Furosemide 20 mg IV BID. Assess filling pressure today.
-Beta Do: Metoprolol succinate 12.5 mg BID.
-ACEI/ARB/ARNi: Lisinopril 2.5 mg daily.
-MRA: None.
-SGLT2i: Home bexagliflozin. Change to dapagliflozin 10 mg daily. Case management consult.
-ICD: Non-specific IVCD. 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
#ACS
-Acute, threat to life.
-Troponin peak 0.57. Possible ACS vs type II or non MT troponin related to HF.
-Denies traditional angina.
-Echocardiogram LVEF is slightly worse from 20-25%.
-Invasive evaluation today (R/L heart cath).
-Continue aspirin, atorvastatin, metoprolol.
#Ventricular ectopy
-Bigeminy and couplets - unclear duration.
-Continue metoprolol.
#NIDDM2
-Chronic, uncontrolled.
-HbA1c = 7.9%.
-Metformin on hold for cath.
-He benefits for SGLT2i - but may need one approved for HFrEF.
-If he has CAD, he may benefit from GLP-1 analogs at discharge.
#HTN
#Remote h/o DVT and IVC filter (post hip surgery)
Subjective/Interval History:
Brief SVT overnight.
Weight down 0.8 kg overnight, 7.3 kg from admission (128.2 <-- 135.5 ).
Feels improved from admission.
DATA:
TTE, 10/29/2024:
CONCLUSIONS
Technically difficult study. Echo contrast was used
Dilated left ventricle with severely reduced left ventricular function
Estimate ejection fraction 20 to 25%
Diastolic dysfunction and suspected increased filling pressures
Aortic sclerosis without stenosis. Trace aortic regurgitation.
Mild mitral regurgitation
Mild tricuspid regurgitation
Borderline dilated aortic root
Compared to the previous report 02/08/2013 the findings are similar with
previous study estimated ejection fraction 20 to 25%. However on direct
comparison left ventricular function appears to be less on the current study
compared to previous study.
TTE, 02/08/2013:
CONCLUSIONS
1. Severe global hypokinesis with EF 20-25%
2. No significant valvular abnormalities
3. Compared with 09/02/12 study, the LV function is now severely reduced. The
previously estimated EF was 45-55%
TTE, 09/03/2012:
CONCLUSIONS
Very technically difficult study
Grossly normal LV size. The LV function is mildly impaired to preserved.
Estimated EF 45-55%.
Right ventricle not well visualized - there is no significant TR and the IVC is
normal. This makes severe TR unlikely.
Grossly normal valves
No prior study available for comparison.
I would suggest alternative procedure - SHANIA or right heart catheterization if
an estimate of right sided pressures is clinically required.
Cardiac Catheterization, 07/22/2012:
CONCLUSIONS
1: Left ventricular enlargement with moderate global hypokinesis with EF 39%.
2: Very mild nonobstructive CAD as described.
3. Findings consistent with diagnosis of idiopathic dilated cardiomyopathy.
4. Recommend medical therapy for left ventricular dysfunction and interval assessment of systolic function.
5. There are no cardiac contraindications to proceeding with hip replacement therapy.
Physical Exam
Vital Signs/Labs
Vital Signs
Temp Pulse Resp BP Pulse Ox
36.6 C 66 18 106/71 96
10/31/24 07:40 10/31/24 08:00 10/31/24 07:40 10/31/24 07:41 10/31/24 07:40
10/29/24 10/30/24 10/31/24
11:59 11:59 11:59
Actual Weight 131.202 kg 129 kg 128.2 kg
10/31/24 02:09
10/31/24 02:09
APTT 54.2 Sec (23.4-35.0) H 10/31/24 02:09
Magnesium 2.1 mg/dl (1.6-2.3) 10/31/24 02:09
Triglycerides 173 mg/dl (10-149) H 10/29/24 04:52
LDL Cholesterol, Calc 118 mg/dl 10/29/24 04:52
VLDL Cholesterol, Calc 34 mg/dl (0-30) H 10/29/24 04:52
HDL Cholesterol 25 mg/dl 10/29/24 04:52
10/28/24
18:05
Yfr-Q-Owxajavlsdm Pept 2260
LAB Results
10/28/24 10/28/24 10/29/24
18:05 21:36 01:45
Troponin I 0.478 H* 0.467 H* 0.557 H*
10/29/24 10/29/24 10/29/24
04:52 06:00 20:21
Troponin I 0.568 H* Cancelled 0.444 H*
Physical Exam
Constitutional: No acute distress and Comfortable
EENT: Anicteric and Moist mucous membranes
Cardiovascular: Rhythm & rate is regular, Pedal edema present, JVD present, S1S2 is normal and Murmur/rub/gallop absent
Respiratory: Respiratory effort normal, Lungs clear to auscul., Wheeze Absent, Crackles Absent and Rhonchi Absent
GI: Soft, Distention absent, Flat, Non tender and Normal bowel sounds
Neuro/Psych: AO x 3
Data Reviewed
-
Date of Service: October 31, 2024
Medical Decision Making: Reviewed Test Results, Independent Historian Assessment and Test Interpretation
EKG: Tracing Personally Visualized and interpreted and Report Reviewed by me
Echo: Report Reviewed by me
X-Ray/CT/US/MRI/NUC/PET: Image Personally Visualized and interpreted and Report Reviewed by me
Medical Tests (PFT, Pathology etc): Image Personally Visualized and interpreted and Report Reviewed by me
Labs: Labs Reviewed by me
Old Records: Reviewed
--- NOTE | 2024-10-31 09:09 | PTCARENOTE ---
Report called to the propagator laborer. 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
[2024-10-31 10:21] LABS: ACT-LR - POC 305 Seconds (116-155)
[2024-10-31 10:37] LABS: ACT-LR - POC 215 Seconds (116-155)
[2024-10-31] MEDS: LASIX IV (11:09)
[2024-10-31] MEDS: LOPRESSOR PO (11:09)
--- NOTE | 2024-10-31 11:11 | ITS.CL.ANGIO ---
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
Angioplasty
Procedure Report:
CARDIAC CATHETERIZATION REPORT
Date of Procedure: 10/31/2024
Referring: Mo Ojeda M.D.
Indication: Known cardiomyopathy, non-ST elevation myocardial infarction.
PROCEDURE:
1. Right heart catheterization.
2. Coronary angiography.
3. Left heart catheterization.
4. Successful IFR of the mid LAD.
5. Successful PCI of OM 3.
6. Successful IFR of the proximal RPDA.
A total of 45 minutes of procedural/moderate sedation was utilized. An independent medical front desk specialist was present to assist with and help manage the patient's level of consciousness and physiologic status.
ACCESS:
1. 6 [place] right radial artery using a modified Seldinger technique.
2. 5 [place] right antecubital vein using a modified Seldinger technique delete under ultrasound guidance. Ultrasound image obtained.
CATHETERS:
1. 5 [place] balloon with.
2. 5 [place] JL 4.
3. 5 [place] JR4.
4. A 6 [place] EBU 4.0 guiding catheter.
HEMODYNAMIC DATA
Weight (kg): 127.9
AO (s/d/x, mmHg): 101/60/79
LV (s/x, mmHg): 109/31 (A wave to 44)
PCWP (a/v/x, mmHg): 40/43/32
PA (s/d/x, mmHg): 56/32/40
RV (s/x, mmHg): 56/13
RA (a/v/x, mmHg): 17/15/14
SVC SvO2 (%): 69.4
IVC SvO2 (%): Not obtained.
RA SvO2 (%): Not obtained.
RV SvO2 (%): Not obtained.
PA SvO2 (%): 66.1
SaO2 (%): 91.9
Hbg (g/dL): 15.0
MY
CO (L/min): 6.62
CI (L/min/m2): 2.60
Thermodilution
CO (L/min): Not performed.
CI (L/min/m2): Not performed.
TPG (mmHg): 8
PVR (Jarvis Units): 1.21
SVR (dynes*seconds*cm^-5): 785
AVO2 Diff (Volume %): 5.26
AV gradient (x, mmHg): None.
AV area (cm2): Normal.
MV gradient (x, mmHg): Not obtained.
MV area (cm2): Not obtained.
LEFT VENTRICULOGRAPHY: Not performed.
AORTOGRAPHY: Not performed.
CORONARY ANGIOGRAPHY
Dominance: Right.
Left Main: Normal size, bifurcating vessel. There is no coronary artery disease.
LAD: Normal size vessel giving rise to 2 significant diagonals. There is a densely calcified, 50% lesion in the mid vessel.
Ramus: Congenitally absent.
Circumflex: Normal size, nondominant vessel giving rise to 3 obtuse marginals. OM1 is a small vessel supplying only the base of the lateral wall. OM 2 is a medium size vessel that is chronically totally occluded at its origin and fills via
retrograde collaterals from the LAD and the RCA. OM 3 is a small to medium size vessel with a 90% lesion in its proximal margin.
RCA: Large size, dominant vessel with a notable posterolateral arcade. There are luminal irregularities throughout the vessel and a 70% lesion in the origin of the RPDA.
INTERVENTIONS
1. Successful IFR of the densely calcified 50% mid LAD lesion, demonstrating nonocclusive disease (IFR = 0.94).
2. Successful PCI of the 90% proximal OM 3 lesion (Medtronic [place] 2.25 x 22 JANA, postdilated with a 2.25 NC balloon) with reduction in stenosis to 0%, maintaining CÉSAR-3 flow.
3. Successful IFR of the 70% ostial RPDA lesion, demonstrating borderline occlusive disease (IFR = 0.89).
Narrative:
The decision was made to perform physiologic testing on the LAD. The diagnostic catheter was removed over a wire and exchanged for a(n) 6 [place] EBU 4.0 guiding catheter. The guiding catheter was advanced into the ascending aorta and seated in the
left main coronary artery. Additional heparin was given to obtain an ACT greater than 250 seconds. An iFR wire was zeroed outside of the body, then inserted into the guiding sheath. The wire was advanced and the transducer was normalized just
outside of the guiding catheter tip. The wire was advanced into the mid LAD, distal to the densely calcified 50% mid LAD lesion. Three iFR measurements were taken. The lesion was determined to be nonocclusive (0.94). The IFR wire was withdrawn.
We then turned our attention to the 90% OM 3 lesion. Additional heparin was given and a Power Turn Flex wire was advanced into the distal OM 3. The 90% proximal OM 3 lesion was predilated with a 2.0 x 15 semi-compliant balloon to 8 jane. The
semi-compliant balloon was removed and a Medtronic [place] 2.25 x 22 drug-eluting stent was advanced. The stent was deployed at 12 atmospheres. The stent balloon was removed. A 2.25 x 15 noncompliant balloon was advanced into the stent and the
stent was postdilated to 12 atmospheres. Angiography was performed in orthogonal views, confirming good stent expansion and an excellent angiographic result. The coronary wire was withdrawn and the guide was disengaged from the artery.
The decision was made to perform physiologic testing on the RPDA. The EBU 4.0 guiding catheter was removed over a wire and exchanged for a(n) 6 [place] JR4 guiding catheter. The guiding catheter was advanced into the ascending aorta and seated in
the right coronary artery. Additional heparin was given to obtain an ACT greater than 250 seconds. The iFR wire was inserted into the guiding sheath. The wire was advanced and the transducer was normalized just outside of the guiding catheter tip.
The wire was advanced into the mid RPDA, beyond the 70% ostial RPDA lesion. Three iFR measurements were taken. The lesion was determined to be borderline occlusive (0.89). Given the borderline nature of the lesion, the previously treated 90% OM 3
lesion, severely elevated filling pressures and history of medication noncompliance, I felt that medical management of this lesion was appropriate. Where he to experience exertional angina on OMT/GDMT, we can return to the cardiac [employer]ician for
reassessment and percutaneous treatment.
Closure Device: Vascular band for the right radial artery, manual pressure for the right antecubital vein.
Radiation dose (mGy): 1481.96
DAP (cm2.Gy): 98.7315
Fluoroscopy time (minutes): 11.2
CONCLUSIONS:
1. Right dominant circulation with a borderline occlusive 70% lesion in the ostial RPDA (IFR = 0.89), a nonocclusive, densely calcified 50% mid LAD lesion (IFR = 0.94), a chronic total flush occlusion of the second obtuse marginal and a 90% lesion
in the proximal margin of OM 3, status post successful PCI (Medtronic [place] 2.25 x 22 JANA, postdilated with a 2.25 NC balloon) with reduction in stenosis to 0%, maintaining CÉSAR-3 flow.
2. Severely elevated filling pressures (LVEDP = 31 mmHg, PCWP = 32 mmHg at 127.9 kg) with evidence of diastolic dysfunction (A wave to 44 mmHg).
3. Mild to moderate, postcapillary pulmonary hypertension (mean PA = 40 mmHg, PCWP = 32 mmHg, cardiac output = 6.62 L/min, PVR = 1.21 Jarvis units), WHO group 2.
4. Severe combined ischemic/nonischemic cardiomyopathy, LVEF 20% by echocardiogram.
5. History of medication nonadherence.
RECOMMENDATIONS:
1. Expectant management after cardiac catheterization via right radial/antecubital approach.
2. Limited weight bearing on the right wrist for one week.
3. Dual antiplatelet therapy with aspirin and clopidogrel for at least 12 months, followed by aspirin indefinitely.
4. OMT/GDMT as hemodynamics will tolerate.
5. Accelerate diuresis given his severely elevated filling pressures.
6. 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
7. Aggressive secondary prevention with high-dose, high potency statin. Goal LDL <55.
8. Reevaluation of ischemic burden with physical activity given borderline role of RPDA lesion and its location at a bifurcation point. If the patient has angina on OMT/GDMT, we will readdress and consider PCI at that point.
9. Referral to cardiac rehab.
Copy to: Mo Ojeda M.D., Jessica Salgado M.D.
Angelo Elizabeth DO, FACC, FACP
[2024-10-31] MEDS: VITAMIN B-12 PO ×2 (11:12→11:13)
[2024-10-31] MEDS: VITAMIN D3 (cholecalciferol) 25 MCG PO (11:13)
[2024-10-31] MEDS: ZESTRIL 2.5 MG PO (11:13)
[2024-10-31] MEDS: THERAGRAN 1 TABLET PO (11:13)
[2024-10-31] MEDS: NON-FORMULARY ITEM 20 MG PO (11:14)
[2024-10-31] MEDS: VITAMIN B-12 1000 MCG PO (11:17)
[2024-10-31 11:18] LABS: Glucose - Point of Care 151 mg/dl (70-99)
--- NOTE | 2024-10-31 11:32 | PTCARENOTE ---
Addendum entered by Enio Fonseca RN 10/31/24 13:11:
Patient received from laborer beam house AO x3, SR BBB, VSS. Right radial band intact with 8 cc of air, POX 94%. Right brachial site CDI. Precautions reviewed. Lunch ordered, blood sugar 151. Call mitchell in reach
Original Note:
Patient received from laborer beam house AO x3, SR BBB, VSS. Right radial band intact with 8 cc of air, POX 94%. Right brachial site CDI. Precautions received. Lunch ordered, blood sugar 151. Call mitchell in reach
[2024-10-31] MEDS: LASIX 20 MG IV (11:42)
[2024-10-31] MEDS: LOPRESSOR 12.5 MG PO (11:42)
--- NOTE | 2024-10-31 12:41 | CM ---
Reviewed chart. MR. Israel was transferred to IVU. Met with and Mrs. Nascimento to review discharge plans. He states prior to admission he resides with his spouse and daughter in a spilt level home with one step to enter. He has seven steps
to get to bedroom/full bathroom. He states he has a powder room on the lower level. He states prior to admission he was independent with ambulation and adls. He states he does not have any DME in the home. He states he has a prescription plan and
[facility]. Medical work-up in progress. The discharge plan is to return home with his spouse and daughter when medically stable.
--- NOTE | 2024-10-31 14:40 | PTCARENOTE ---
Some soft swelling above brachial site, soft, non-tender. Arm elevated, ice applied, changed dressing, no bleeding
[2024-10-31 17:24] LABS: Glucose - Point of Care 156 mg/dl (70-99)
[2024-10-31] MEDS: LIPITOR 40 MG PO (18:30)
[2024-10-31] MEDS: LASIX 40 MG IV (18:36)
--- NOTE | 2024-10-31 21:28 | PTCARENOTE ---
Rec'd pt at change of shift. Pt AAO*3, VSS, and SR on TELE monitor with BBB. Pt denies any pain or discomfort & R radial/brachial site with dressing CDI. Pt provided education by RN on CFH, CAD, and R upper extremity restrictions. Pt resting
with call mitchell in reach. Plan of care ongoing. See MAR and flowchart for full pt care and assessment.
[2024-10-31 22:01] LABS: Glucose - Point of Care 160 mg/dl (70-99)
[2024-11-01 04:47] VITALS: BP 121/71
[2024-11-01 04:51] VITALS: BP 121/71
[2024-11-01 04:53] VITALS: BMI 34.9
[2024-11-01 05:48] LABS: Blood Urea Nitrogen 31 mg/dl (9-20); Calcium 9.4 mg/dl (8.4-10.2); Carbon Dioxide 25 mmol/L (22-30); Chloride 105 mmol/L (98-107); Estimated Creatinine Clearance 106 ml/min; Glucose 149 mg/dl (70-99); Potassium 4.4 mmol/L (3.5-5.1); Sodium 141 mmol/L (135-145); eGFR > 60.00
[2024-11-01 07:10] VITALS: BP 114/73
--- NOTE | 2024-11-01 07:32 | W.PN.CD ---
Today's Communication / Plan
-
Continue metoprolol to 25 mg QHS, furosemide 80 mg PO BID.
Change SGLT2i to dapagliflozin 10 mg daily if christy is reasonable.
BMP in one week.
Close outpatient cardiology follow up.
Discharge planning.
Impression / Plan
-
Impression/Plan: 64 y/o male with NIDDM, HTN, hx of provoked DVT + IVCF, AF (s/p prior DCCV, no rate control/anticoagulation) and NICMO admitted with increasing dyspnea and elevated troponin concerning for ACS.
#Shortness of breath/HFrEF
-Acute on chronic.
-Highly skeptical of modern medical management and hopes that Mr. Ta will do miracle for him. So far he was placed on empagliflozin and he could not afford. He does not want to take any medications.
-Diuresis with IV furosemide, decreased to 20 mg IV BID yesterday.
-Echocardiogram 10/29/24: LVEF slightly worse at 20%.
-Monitor renal function, labs and weights.
-GDMT:
-Diuretics: Diuresing on furosemide 80 mg PO BID.
-Beta Do: Metoprolol succinate 25 mg QHS.
-ACEI/ARB/ARNi: Lisinopril 2.5 mg daily.
-MRA: None.
-SGLT2i: Home bexagliflozin. Change to dapagliflozin 10 mg daily. Case management consult.
-ICD: Non-specific IVCD. Role for [employer]-D?
#ACS/NSTEMI
-Acute, threat to life.
-Troponin peak 0.57.
-Denies traditional angina.
-Echocardiogram LVEF is slightly worse from 20-25%.
-S/P cath showing non-occlusive 50% mLAD (iFR = 0.94), borderline 70% oRPDA (iFR = 0.89) and a 90% proximal OM3 lesion, subsequent PCI (Medtronic [place] 2.25 x 18 JANA).
-DAPT with aspirin and clopidogrel for at least 12 months.
-Continue metoprolol, atorvastatin.
#NIDDM2
-Chronic, uncontrolled.
-HbA1c = 7.9%.
-Starting dapagliflozin.
-Resume metformin tomorrow.
-The patient would benefit from GLP-1 analog, but is intolerant of these medications.
#Hyperlipidemia
-Chronic, stable.
-Total choletserol = 177, LDL = 118, HDL = 25, Triglycerides = 173.
-Atorvastatin 40 mg daily.
-Goal LDL < 55.
#Ventricular ectopy
-Bigeminy and couplets - unclear duration.
-Continue metoprolol.
#HTN
#Remote h/o DVT and IVC filter (post hip surgery)
Subjective/Interval History:
Cardiac catheterization shows non-occlusive 50% mLAD (iFR = 0.94), borderline 70% ostial RPDA (iFR = 0.89) and a 90% OM3, s/p PCI, severely elevated filling pressures (LVEDP = 31 mmHg, PCWP = 32 mmHg).
Furosemide dose increased back to 40 mg IV BID, changed to 80 mg PO BID this morning.
Weight is down 1.6 kg.
Feels well.
DATA:
Cardiac Catheterization/PCI, 10/31/2024:
CONCLUSIONS:
1. Right dominant circulation with a borderline occlusive 70% lesion in the ostial RPDA (IFR = 0.89), a nonocclusive, densely calcified 50% mid LAD lesion (IFR = 0.94), a chronic total flush occlusion of the second obtuse marginal and a 90% lesion
in the proximal margin of OM 3, status post successful PCI (Medtronic [place] 2.25 x 22 JANA, postdilated with a 2.25 NC balloon) with reduction in stenosis to 0%, maintaining CÉSAR-3 flow.
2. Severely elevated filling pressures (LVEDP = 31 mmHg, PCWP = 32 mmHg at 127.9 kg) with evidence of diastolic dysfunction (A wave to 44 mmHg).
3. Mild to moderate, postcapillary pulmonary hypertension (mean PA = 40 mmHg, PCWP = 32 mmHg, cardiac output = 6.62 L/min, PVR = 1.21 Jarvis units), WHO group 2.
4. Severe combined ischemic/nonischemic cardiomyopathy, LVEF 20% by echocardiogram.
5. History of medication nonadherence.
TTE, 10/29/2024:
CONCLUSIONS
Technically difficult study. Echo contrast was used
Dilated left ventricle with severely reduced left ventricular function
Estimate ejection fraction 20 to 25%
Diastolic dysfunction and suspected increased filling pressures
Aortic sclerosis without stenosis. Trace aortic regurgitation.
Mild mitral regurgitation
Mild tricuspid regurgitation
Borderline dilated aortic root
Compared to the previous report 02/08/2013 the findings are similar with
previous study estimated ejection fraction 20 to 25%. However on direct
comparison left ventricular function appears to be less on the current study
compared to previous study.
TTE, 02/08/2013:
CONCLUSIONS
1. Severe global hypokinesis with EF 20-25%
2. No significant valvular abnormalities
3. Compared with 09/02/12 study, the LV function is now severely reduced. The
previously estimated EF was 45-55%
TTE, 09/03/2012:
CONCLUSIONS
Very technically difficult study
Grossly normal LV size. The LV function is mildly impaired to preserved.
Estimated EF 45-55%.
Right ventricle not well visualized - there is no significant TR and the IVC is
normal. This makes severe TR unlikely.
Grossly normal valves
No prior study available for comparison.
I would suggest alternative procedure - SHANIA or right heart catheterization if
an estimate of right sided pressures is clinically required.
Cardiac Catheterization, 07/22/2012:
CONCLUSIONS
1: Left ventricular enlargement with moderate global hypokinesis with EF 39%.
2: Very mild nonobstructive CAD as described.
3. Findings consistent with diagnosis of idiopathic dilated cardiomyopathy.
4. Recommend medical therapy for left ventricular dysfunction and interval assessment of systolic function.
5. There are no cardiac contraindications to proceeding with hip replacement therapy.
Physical Exam
Vital Signs/Labs
Vital Signs
Temp Pulse Resp BP Pulse Ox
36.7 C 62 16 121/71 97
11/01/24 04:51 11/01/24 06:00 11/01/24 04:51 11/01/24 04:51 11/01/24 04:51
10/30/24 10/31/24 11/01/24
11:59 11:59 11:59
Actual Weight 129 kg 128.2 kg 126.6 kg
10/31/24 02:09
11/01/24 05:07
APTT Cancelled 10/31/24 08:35
Magnesium 2.1 mg/dl (1.6-2.3) 10/31/24 02:09
Triglycerides 173 mg/dl (10-149) H 10/29/24 04:52
LDL Cholesterol, Calc 118 mg/dl 10/29/24 04:52
VLDL Cholesterol, Calc 34 mg/dl (0-30) H 10/29/24 04:52
HDL Cholesterol 25 mg/dl 10/29/24 04:52
10/28/24
18:05
Ykk-T-Qubdpylaznw Pept 2260
LAB Results
10/29/24
20:21
Troponin I 0.444 H*
Physical Exam
Constitutional: No acute distress and Comfortable
EENT: Anicteric and Moist mucous membranes
Cardiovascular: Rhythm & rate is regular, Pedal edema is absent, JVD pressure is normal, S1S2 is normal and Murmur/rub/gallop absent
Respiratory: Respiratory effort normal, Lungs clear to auscul., Wheeze Absent, Rhonchi Absent and Crackles Present (Bilateral bases.)
GI: Soft, Distention absent, Flat, Non tender and Normal bowel sounds
Neuro/Psych: AO x 3
Other: Cath Site (Right radial artery access site is C/D/I.)
Data Reviewed
-
Date of Service: November 01, 2024
Medical Decision Making: Reviewed Test Results, Independent Historian Assessment and Test Interpretation
EKG: Tracing Personally Visualized and interpreted and Report Reviewed by me
Echo: Tracing Personally Visualized and interpreted and Report Reviewed by me
X-Ray/CT/US/MRI/NUC/PET: Image Personally Visualized and interpreted and Report Reviewed by me
Medical Tests (PFT, Pathology etc): Image Personally Visualized and interpreted, Report Reviewed by me, Discussed with Patient and Discussed with Family
Labs: Labs Reviewed by me
Old Records: Reviewed
[2024-11-01 07:45] LABS: Glucose - Point of Care 141 mg/dl (70-99)
[2024-11-01] MEDS: NOVOLOG FLEXPEN-LOW RESISTANCE SC (08:26)
[2024-11-01] MEDS: NON-FORMULARY ITEM 20 MG PO (08:27)
[2024-11-01] MEDS: ASPIR LOW (ENTERIC COATED) 81 MG PO (08:29)
[2024-11-01] MEDS: ZESTRIL 2.5 MG PO (08:29)
[2024-11-01] MEDS: THERAGRAN 1 TABLET PO (08:30)
[2024-11-01] MEDS: VITAMIN D3 (cholecalciferol) 25 MCG PO (08:30)
[2024-11-01] MEDS: PLAVIX 75 MG PO (08:30)
[2024-11-01] MEDS: LASIX 80 MG PO ×2 (08:33→16:25)
[2024-11-01] MEDS: VITAMIN B-12 1000 MCG PO (08:34)
--- NOTE | 2024-11-01 09:17 | PTCARENOTE ---
Assumed care. Patient AO x3. NSR on telemetry. right radial and right brachial sites unchanged, dressing secure. at bedside, call mitchell in reach
[2024-11-01 12:04] LABS: Glucose - Point of Care 234 mg/dl (70-99)
[2024-11-01] MEDS: NOVOLOG FLEXPEN-LOW RESISTANCE 2 UNITS SC (12:10)
[2024-11-01 13:22] VITALS: BP 96/58
[2024-11-01 14:56] VITALS: BP 108/68
--- NOTE | 2024-11-01 15:56 | CM ---
Reviewed chart. Telephone call to [facility], ([phone]) to check on co-pay for Eli. His co-pay would be $47.00 a month. Placed the one month free coupon in the red discharge folder. Waldo and Kevin both need a prior auth. and could not
know the christy until after the prior auth. The prior auth telephone number is ([phone]). Prior to admission he resides with his spouse and daughter in a spilt level home with one step to enter. He has seven steps to et to bedroom/full
bathroom. He has a powder room on the lower level. Prior to admission he was independent with ambulation and adls. He does not have any DME in the home. He has a prescription plan and uses [facility]. Medical work-up in progress. The
discharge plan is to return home with his spouse and daughter when medically stable.
--- NOTE | 2024-11-01 16:21 | W.PN.HOSP.TC ---
Today's Communication/Plan
-
dc
Assessment / Plan
Assessment / Plan
64yo M with PMHx of HFrEF combined with diastolic dysfunction, DM, HTN, obesity and CAD with cath in 2012 without stent placement (mild nonobstructive CAD), came with few days of SOB more feeling like abdominal bloating, found elevated troponin,
consistent with NSTEMI and acute CHF. Symptoms resolved on diuresis and patient was awaiting cardiac cath while on heparin drip. Had stent placed on 10/31/24 and as per agreement with cardiology - discharged after successful diuresis while loosing
10kg weight. SGLT-2 replaced to Farxiga for evidence-based cardiac benefit. BMP in 5 days enforced - patient and will follow with PCP for that.
A/P:
#NSTEMI
#Acute on chronic combined systolic and diastolic CHF
Lasix, daily weight, follow Cr and electrolytes, strict I&O
Echo with EF 25-35% similar to prior, but visually worse LV function
Heparin drip until cath
ASA, Plavix, statin, BB, ACEi
Cardio consult: cath on 10/31/24
TSH WNL
LDL 118
#DM type 2 with unspecified complications
Accuchecks, insulin SS, DM diet
COnt bexagliflozin
hold Metformin and glipizide
#Essential HTN
#HLD
cont home meds
#Obesity
BMO 35.5
advise to decrease calorie intake
DVT ppx - cont heparin drip
FUll code
I have spent at least 38min reviewing chart, test results, communication with consultants and providing direct patient care
Anticipated Discharge: Today
Subjective/Interval History
-
Date of Service: November 01, 2024
Objective Data
-
Labs:
Laboratory Results
11/01/24
05:07
Sodium 141
Potassium 4.4
Chloride 105
Carbon Dioxide 25
BUN 31 H
Creatinine 1.0
Glucose 149 H
Calcium 9.4
Vital Signs:
Vital Signs
Temp Pulse Resp BP Pulse Ox
98.1 F 70 20 114/73 95
11/01/24 16:01 11/01/24 11:00 11/01/24 16:01 11/01/24 07:10 11/01/24 16:01
I&O
10/31/24 11/01/24 11/02/24
06:59 06:59 06:59
Intake Total 1490 / 1490 240 / 240
Output Total 2650 / 2650 2200 / 2200 800 / 800
Balance -2650 / -2650 -710 / -710 -560 / -560
Review of Systems
-
History Source: Patient
All other systems: Reviewed and negative
Physical Exam
-
General: No Apparent Distress
HEENT: Normocephalic
Respiratory: Clear to Auscultation
Cardiac: Regular Rhythm
Musculoskeletal: No Clubbing and No Cyanosis
Skin: Warm
Neuro: Awake, Alert, Oriented and AO x 3
Psych: Calm
[2024-11-01 16:25] VITALS: BP 113/67
[2024-11-01] MEDS: LIPITOR 40 MG PO (16:25)
--- NOTE | 2024-11-01 16:25 | W.DCSUMMARY ---
Addendum entered and electronically signed by Thierry Horton MD 11/01/24 16:28:
discharge done during EMR downtime - Farxivt paper prescription provided as well as verbal instructions to the patient. Rest of meds sent electronically
Original Note:
Discharge Summary
Discharge Data
Date of Admission: 10/28/24
Date of Discharge: 11/01/24
-
Pending Results: No
Hospital Course
64yo M with PMHx of HFrEF combined with diastolic dysfunction, DM, HTN, obesity and CAD with cath in 2012 without stent placement (mild nonobstructive CAD), came with few days of SOB more feeling like abdominal bloating, found elevated troponin,
consistent with NSTEMI and acute CHF. Symptoms resolved on diuresis and patient was awaiting cardiac cath while on heparin drip. Had stent placed on 10/31/24 and as per agreement with cardiology - discharged after successful diuresis while loosing
10kg weight. SGLT-2 replaced to Farxiga for evidence-based cardiac benefit. BMP in 5 days enforced - patient and will follow with PCP for that.
Patien t was managed for:
#NSTEMI
#Acute on chronic combined systolic and diastolic CHF
#DM type 2 with unspecified complications
#Essential HTN
#HLD
#Obesity
#HLD
Discharge Plan
-
Patient Disposition: Home (Routine Discharge)
Discharge Diagnosis/Procedures: Angioplasty with stent to obtuse marginal artery x1
Diet: Low Cholesterol and Diabetic, Carb Controlled
Driving Restrictions: No driving for 24 hours
Blood Work: BMP with family doctor in 5 days
Other Services: Cardiac Rehab
Stand Alone Forms: DC Instructions- Cath/EP Lab
Referrals:
[facility] [Outside] - 11/29/24 10:00 am
Referral Note: Cardiac Rehab Orientation appointment is on 11/29/24 at 10 AM
The Cardiac Rehab gym is located on the first floor of the [facility].
Radha Lombardo NP [Specified Professional Personl, Cardiology] - 11/27/24 11:40 am
Miryam Rosales DO [Family Provider]
Additional Discharge Medication Instructions: Hold Metformin post procedure, resume on am
Prescriptions:
New
atorvastatin 40 mg Tablet
40 mg PO QPM Qty: 30 0RF
clopidogrel 75 mg Tablet
75 mg PO DAILY Qty: 30 0RF
furosemide 80 mg Tablet
80 mg PO BID@0800,1600 Qty: 60 0RF
metoprolol succinate 25 mg Tablet Extended Release 24 Hr
25 mg PO HS Qty: 30 0RF
lisinopril 2.5 mg Tablet
2.5 mg PO DAILY Qty: 30 0RF
Continued
glipizide 10 mg Tablet Extended Release 24hr
10 mg PO DAILY
cyanocobalamin (vitamin B-12) 1,000 mcg Tablet
1,000 mcg PO DAILY
therapeutic multivitamin Tablet
1 tab PO DAILY
aspirin 81 mg Tablet,Delayed Release (Dr/Ec)
81 mg PO DAILY
zinc sulfate 50 mg zinc (220 mg) Tablet
50 mg PO DAILY
vitamin A 3,000 mcg (10,000 unit) Capsule
3,000 mcg PO DAILY
calcium carbonate 500 mg calcium (1,250 mg) Tablet
500 mg PO DAILY
cholecalciferol (vitamin D3) [Vitamin D3] 25 mcg (1,000 unit) Tablet
25 mcg PO DAILY
omega 4-icn-vzf-fish oil [Fish Oil] 1,000 (120-180) mg Capsule
1 cap PO DAILY
cranberry 450 mg Tablet
450 mg PO DAILY
Glucosamine Chondroitin 550-30-1 mg Capsule
1 cap PO DAILY
bexagliflozin [Brenzavvy] 20 mg Tablet
20 mg PO DAILY
Held
metformin 500 MG tablet
1,000 mg PO BID
Hold Instructions: Resume on 10/05/24.
Discontinued
lisinopril 10 MG tablet
10 mg PO DAILY
garlic 400 mg Tablet
400 mg PO DAILY
Discharge Orders:
Discharge Patient (As Directed); Ordered 11/01/24
Ordered By: Thierry Horton
Care Plan Goals
Care Plan Goals:
Problem: Readiness for enhanced knowledge related to diagnosis and treatment plan
Goal: Understand your diagnosis and treatment plan needs, including medications if applicable.
Instructions: Know your diagnosis, underlying causes and treatment plan options, including medications if applicable. Consult with your health care team to learn about your diagnosis and treatment plan, including medications if applicable.
Discharge Date and Time
Print Language: CHINESE
--- NOTE | 2024-11-01 16:43 | PTCARENOTE ---
Patient discharged to home. IV and telemetry removed. Teaching provided, patient verbalized understanding. patient escorted to main lobby in a wheelchair
--- NOTE | 2024-11-01 17:31 | DOWNTIME ---
There was a [employer] Downtime on 11/01/2024 from 1230 to 11/01/2024 at 1550. Downtime documentation of patient's care, including medication administrations, has been reconciled in the electronic record per guidelines. Refer to the
patient's paper chart under the miscellaneous tab to see printed paper medication records and downtime forms.
== END 2024-11-01 16:49 | disposition home or self-care (01) | DRG 321 ==
LOC: IVU 22:50
PROVIDERS: Clinical Nurse Specialist Family Health; Internal Medicine; Internal Medicine Cardiovascular Disease; Nurse Practitioner Adult Health; Nurse Practitioner Family; ADMITTING PHYSICIAN Internal Medicine; ATTENDING PHYSICIAN Internal Medicine; CONSULT PHYSICIAN Internal Medicine Cardiovascular Disease; EMERGENCY PHYSICIAN Emergency Medicine; FAMILY PHYSICIAN Family Medicine
PROC: 027034Z Dilation of Coronary Artery, One Artery with Drug-eluting Intraluminal Device, Percutaneous Approach (ICD-10-PCS; 2024-10-31)
PROC: 4A023N8 Measurement of Cardiac Sampling and Pressure, Bilateral, Percutaneous Approach (ICD-10-PCS; 2024-10-31)
PROC: B2111ZZ Fluoroscopy of Multiple Coronary Arteries using Low Osmolar Contrast (ICD-10-PCS; 2024-10-31)
PROC: 4A033BC Measurement of Arterial Pressure, Coronary, Percutaneous Approach (ICD-10-PCS; 2024-10-31)
DX: I21.4 Non-ST elevation (NSTEMI) myocardial infarction (principal); I50.43 Acute on chronic combined systolic (congestive) and diastolic (congestive) heart failure; I42.0 Dilated cardiomyopathy; E11.9 Type 2 diabetes mellitus without complications; I11.0 Hypertensive heart disease with heart failure; I27.29 Other secondary pulmonary hypertension; I48.0 Paroxysmal atrial fibrillation; I25.10 Atherosclerotic heart disease of native coronary artery without angina pectoris; I45.9 Conduction disorder, unspecified; I49.3 Ventricular premature depolarization; E78.5 Hyperlipidemia, unspecified; I70.0 Atherosclerosis of aorta; E66.812 Obesity, class 2; Z96.643 Presence of artificial hip joint, bilateral; Z79.84 Long term (current) use of oral hypoglycemic drugs; Z79.82 Long term (current) use of aspirin; Z86.718 Personal history of other venous thrombosis and embolism; Z95.828 Presence of other vascular implants and grafts; Z80.1 Family history of malignant neoplasm of trachea, bronchus and lung; Z88.0 Allergy status to penicillin; Z88.7 Allergy status to serum and vaccine; Z91.148 Patient's other noncompliance with medication regimen for other reason; Z68.37 Body mass index [BMI] 37.0-37.9, adult; Z82.49 Family history of ischemic heart disease and other diseases of the circulatory system
CPT/HCPCS: 71046; 80048; 80053; 80061; 82962; 83036; 83735; 83880; 84443; 84484; 85025; 85027; 85347; 85730; 93005; 93306; 93460; 93799; 96374; 96375; 99152; 99153; 99291; C1725; C1769; C1874; C1887; C1894; C9600; Q9967

== ENCOUNTER → 2024-11-13 10:20 | Outpatient (REF) | payer MEDICARE, SELFPAY ==
[2024-11-13 12:18] LABS: % Basophils 0.6 % (0-2); % Eosinophils 2.2 % (0-6); % Immature Granulocytes 0.3 % (0-0.5); % Lymphocytes 18.3 % (20.5-51.1); % Monocytes 7.9 % (1.7-9.3); % Neutrophils 70.7 % (42.2-75.2); Absolute Eosinophils 0.1 10^3/uL (0-0.7); Absolute Lymphocytes 1.2 10^3/uL (1.2-3.4); Absolute Monocytes 0.5 10^3/uL (0.1-0.6); Absolute Neutrophils 4.6 10^3/uL (1.4-6.5); Hematocrit 45.2 % (39.0-52.0); Hemoglobin 15.4 g/dL (13.0-18.0); Mean Corp Hgb Conc. 34.1 g/dL (33.0-37.0); Mean Corpuscular Hgb 30.6 pg (27.0-31.0); Mean Corpuscular Volume 89.9 fL (80.0-94.0); Mean Platelet Volume 11.3 fL (7.4-10.4); Nucleated Red Blood Cells % 0 % (-); Platelet Count 147 10^3/uL (130-400); Red Blood Cell Count 5.03 10^6/uL (4.70-6.10); Red Cell Dist. Width 12.4 % (11.5-14.5); White Blood Cell Count 6.5 10^3/uL (4.8-10.8)
[2024-11-13 12:50] LABS: ALT (SGPT) 30 U/L (0-50); AST (SGOT) 32 U/L (17-59); Albumin 4.3 g/dl (3.5-5.0); Alkaline Phosphatase 63 U/L (38-126); Blood Urea Nitrogen 46 mg/dl (9-20); Calcium 9.5 mg/dl (8.4-10.2); Carbon Dioxide 28 mmol/L (22-30); Chloride 98 mmol/L (98-107); Glucose 132 mg/dl (70-99); HDL Cholesterol 17 mg/dl; LDL Cholesterol, Calculated 65 mg/dl; Potassium 3.9 mmol/L (3.5-5.1); Sodium 136 mmol/L (135-145); Total Cholesterol 116 mg/dl (50-199); Total Protein 8.1 g/dl (6.3-8.2); Triglyceride 170 mg/dl (10-149); Very Low Density Lipoprotein 34 mg/dl (0-30); eGFR 55.78
[2024-11-13 12:52] LABS: NT-proBNP 1690 pg/ml
[2024-11-13 13:15] LABS: TSH Reflex To Free T4 3.33 uIU/ml (0.47-4.68)
[2024-11-13 14:21] LABS: Glycohemoglobin (HgbA1c) 8.3 % (4.0-5.6)
== END ==
LOC: HWRCS 10:20
PROVIDERS: ATTENDING PHYSICIAN Family Medicine
DX: I50.43 Acute on chronic combined systolic (congestive) and diastolic (congestive) heart failure (principal); I25.2 Old myocardial infarction; E11.65 Type 2 diabetes mellitus with hyperglycemia; Z71.89 Other specified counseling; I10 Essential (primary) hypertension; E78.5 Hyperlipidemia, unspecified; Z68.37 Body mass index [BMI] 37.0-37.9, adult; E66.9 Obesity, unspecified; R79.89 Other specified abnormal findings of blood chemistry
CPT/HCPCS: 36415; 80053; 80061; 83036; 83880; 84443; 85025; 93306

== ENCOUNTER 2024-12-04 08:48 | Outpatient (RCR) | payer MEDICARE, SELFPAY ==
[2024-11-29 11:37] LABS: Glucose - Point of Care 272 mg/dl (70-99)
[2024-11-29 12:34] LABS: Glucose - Point of Care 267 mg/dl (70-99)
[2024-12-04 06:28] LABS: Glucose - Point of Care 182 mg/dl (70-99)
[2024-12-04 07:32] LABS: Glucose - Point of Care 283 mg/dl (70-99)
[2024-12-04 07:34] LABS: Glucose - Point of Care 266 mg/dl (70-99)
== END 2024-12-04 23:59 | disposition home or self-care (01) ==
LOC: CRHB 08:48
PROVIDERS: ATTENDING PHYSICIAN Internal Medicine Cardiovascular Disease
DX: I25.10 Atherosclerotic heart disease of native coronary artery without angina pectoris (principal); Z95.5 Presence of coronary angioplasty implant and graft; I25.2 Old myocardial infarction
CPT/HCPCS: 82962; G0422; G0423

== ENCOUNTER 2024-12-05 10:59 | Emergency (ER) | payer MEDICARE, SELFPAY ==
[2024-12-05 11:01] VITALS: BP 127/63
[2024-12-05 11:47] VITALS: BP 118/69
[2024-12-05 12:00] VITALS: BP 112/64
[2024-12-05 12:15] VITALS: BMI 34.7
[2024-12-05 12:18] VITALS: BP 112/73
[2024-12-05 12:19] VITALS: BP 125/66
[2024-12-05 12:27] LABS: Hematocrit 38.7 % (39.0-52.0); Hemoglobin 12.9 g/dL (13.0-18.0); Mean Corp Hgb Conc. 33.3 g/dL (33.0-37.0); Mean Corpuscular Volume 90.2 fL (80.0-94.0); Nucleated Red Blood Cells % 0 % (-); Platelet Count 181 10^3/uL (130-400); Red Cell Dist. Width 12.6 % (11.5-14.5)
[2024-12-05 12:58] LABS: ALT (SGPT) 14 U/L (0-50); AST (SGOT) 15 U/L (17-59); Albumin 4.2 g/dl (3.5-5.0); Alkaline Phosphatase 46 U/L (38-126); Blood Urea Nitrogen 53 mg/dl (9-20); Calcium 9.9 mg/dl (8.4-10.2); Carbon Dioxide 26 mmol/L (22-30); Chloride 105 mmol/L (98-107); Estimated Creatinine Clearance 81 ml/min; Glucose 232 mg/dl (70-99); Potassium 4.1 mmol/L (3.5-5.1); Sodium 141 mmol/L (135-145); Total Protein 7.6 g/dl (6.3-8.2); eGFR > 60.00
--- NOTE | 2024-12-05 13:18 | ED.GENMED ---
History of Present Illness
General
Chief Complaint: Dizziness
Source: patient and spouse
Exam Limitations: none
Time Seen by Provider: 12/05/24 12:04
Nursing documentation reviewed up to this point in time: agreed with
History of Present Illness
History of Present Illness:
64 yo male w h/o cardiac stent 10/2024 here for episodes of lightheadedness, fleeting palpitations.
He started cardiac rehab yesterday, said it went well, nothing too strenuous. Then went to lunch and as he was getting out of the car he felt very dizzy for 15 seconds and had to lean against the car. episode lightheadedness getting OOB this a.m.,
slept well last night, reading at breakfast felt 'my heart skip beat' and felt 'a little dizzy' for a few seconds. Then had about 12-15 fleeting chest sensation like 'a hard lump' in my chest, denies chest pains, SOB n/v/d/c. Is very emotional,
tearful, at bedside says he is very afraid he will be a cardiac cripple.
Past History
Past History
ED Past Medical History: Arrthythmia (Atrial fibrillation), HTN, NIDDM and Other (Avascular necrosis of both hips)
ED Past Surgical History: Other (History of vasectomy, cardioversion for A. fib)
Social History
Tobacco: Non-smoker
Alcohol: None
Drug: None
Personal:
Living: with family
Employment: Employed
Family History
Family History: Other
Review of Systems
Review of Systems
Allergies reviewed?: Yes
All Other Systems: ROS reviewed and negative except as documented in HPI and ROS
Constitutional: Denies fever or fatigue
Respiratory: Denies trouble breathing
Cardiac: Reports palpitations; Denies chest pain or diaphoresis
ABD/GI: Denies abdominal pain, nausea, vomiting, diarrhea or anorexia
: Denies dysuria, frequency or difficulty voiding
Musculoskeletal: Denies edema
Skin: Reports no symptoms
Neurological: Reports no symptoms
Psychiatric: Reports anxiety (about health)
Phy Exam
Physical Exam
Physical Exam:
GENERAL: No acute distress. A&Ox3.
CONSTITUTIONAL: Afebrile.
EYES: clear, conjunctivae normal
ENMT: moist mucus membranes, Pharynx nl
RESPIRATORY: Regular respirations, nonlabored, lungs clear.
CARDIOVASCULAR: Regular rate and rhythm, no murmurs, no rubs.
GI: Soft, nontender, normal BS
MUSCULOSKELETAL: Moves with ease. Well perfused.
SKIN: Warm, dry, pink
PSYCH: Normal mood and affect. Well kept, interactive and appropriate
NEUROLOGIC: Awake, alert and oriented. No focal neurological deficits
Course
Orders/Labs/Results
Orders:
Orders
12/05/24 11:01
Electrocardiogram (*1) Urgent
Reason for Study: Palpitations
EKG- Treatment ONCE
12/05/24 12:19
CBC/With Diff [Complete Blood Count/With Diff] Urgent
CMP [Comprehensive Metabolic Panel] Urgent
Abnormal Lab Results
12/05/24
12:19
RBC 4.29 L 10^6/uL
(4.70-6.10)
Hgb 12.9 L g/dL
(13.0-18.0)
Hct 38.7 L %
(39.0-52.0)
BUN 53 H mg/dl
(9-20)
Glucose 232 H mg/dl
(70-99)
AST 15 L U/L
(17-59)
12/05/24 12:19
12/05/24 12:19
Vital Signs
Initial and Last Documented VS:
Initial Vital Signs
Temp Pulse Resp BP Pulse Ox
98.4 F 80 16 127/63 97
12/05/24 11:01 12/05/24 11:01 12/05/24 11:01 12/05/24 11:01 12/05/24 11:01
Last Documented Vital Signs
Temp Pulse Resp BP Pulse Ox
98.4 F 82 12 125/66 97
12/05/24 11:01 12/05/24 12:30 12/05/24 12:30 12/05/24 12:19 12/05/24 13:18
MDM/Problems Addressed
Differential Diagnosis Includes:
medication side effect, dehydration, orthostasis
MDM/Problems Addressed:
64 yo male w h/o cardiac stent 10/2024 here for episodes of lightheadedness, fleeting palpitations.
He started cardiac rehab yesterday, said it went well, nothing too strenuous. Then went to lunch and as he was getting out of the car he felt very dizzy for 15 seconds and had to lean against the car. episode lightheadedness getting OOB this a.m.,
slept well last night, reading at breakfast felt 'my heart skip beat' and felt 'a little dizzy' for a few seconds. Then had about 12-15 fleeting chest sensation like 'a hard lump' in my chest, denies chest pains, SOB n/v/d/c.
Pt is very emotional, tearful, at bedside says he is very afraid he will be a 'cardiac cripple.'
CBC, CMP with no clinically significant abnormality.
EKG normal sinus rhythm, left axis deviation, no change from previous
Orthostatics negative
Pt has new medications since discharge: Farxiga 10 mg, atorvastatin 40 mg, Lasix 80 mg daily, metoprolol ER 25 mg daily, Plavix 75 mg daily
Some of his dizziness/lightheadedness may be from his new medications
He has been instructed to change positions slowly to avoid orthostasis
He has an appointment with his family doctor next week
Chronic conditions affecting care: DM, HTN and CAD
*Pulse Oximetry
SaO2: 97
Oxygen Mode of Delivery: Room air
Patient hypoxic: no
*EKG
EKG Intrepretation Date: 12/05/24
Comparison EKG: no changes
Heart Rate: 80
Rate: normal
Rhythm: sinus
[place]: left axis deviation
Interval: normal interval
QRS Pattern: normal QRS
Ischemia: no ischemia
*Critical Care Note
Total Time (30-74mins, 75-104mins- exclusive of procedures): Not Applicable
ED Attending Note
-
Portions of this chart may have been created with voice recognition software.� Occasional wrong word or��sound alike� substitutions may have occurred due to the inherent limitations of voice recognition software.
Discharge Plan
Departure
Patient Disposition: Home (Routine Discharge)
Date of Disposition: 12/05/24
Time of Disposition: 14:09
Patient with high blood pressure during this ER visit?: No
Condition: Good
Discharge Problem:
Heart palpitations, Intermittent lightheadedness
Instructions: Dealing with Dizziness from the Drugs You Take, Palpitations
Prescriptions:
No Action
metformin 500 MG tablet
1,000 mg PO BID
glipizide 10 mg Tablet Extended Release 24hr
10 mg PO DAILY
cyanocobalamin (vitamin B-12) 1,000 mcg Tablet
1,000 mcg PO DAILY
therapeutic multivitamin Tablet
1 tab PO DAILY
aspirin 81 mg Tablet,Delayed Release (Dr/Ec)
81 mg PO DAILY
zinc sulfate 50 mg zinc (220 mg) Tablet
50 mg PO DAILY
vitamin A 3,000 mcg (10,000 unit) Capsule
3,000 mcg PO DAILY
calcium carbonate 500 mg calcium (1,250 mg) Tablet
500 mg PO DAILY
cholecalciferol (vitamin D3) [Vitamin D3] 25 mcg (1,000 unit) Tablet
25 mcg PO DAILY
omega 6-qnx-cfo-fish oil [Fish Oil] 1,000 (120-180) mg Capsule
1 cap PO DAILY
cranberry 450 mg Tablet
450 mg PO DAILY
Glucosamine Chondroitin 550-30-1 mg Capsule
1 cap PO DAILY
atorvastatin 40 mg Tablet
40 mg PO QPM Qty: 30 0RF
clopidogrel 75 mg Tablet
75 mg PO DAILY Qty: 30 0RF
furosemide 80 mg Tablet
80 mg PO BID@0800,1600 Qty: 60 0RF
metoprolol succinate 25 mg Tablet Extended Release 24 Hr
25 mg PO HS Qty: 30 0RF
lisinopril 2.5 mg Tablet
2.5 mg PO DAILY Qty: 30 0RF
dapagliflozin propanediol [Farxiga] 10 mg tablet
10 mg PO DAILY Qty: 30 0RF
Referrals:
Miryam Rosales DO [Family Provider, Family Practice] - Keep scheduled appt
Activity Restrictions/Additional Instructions:
As we discussed, there is nothing worrisome in your workup here today. Specifically no sign of dehydration your blood sugar is mildly elevated but that could be from the
Steroid eyedrops
The lightheaded/dizziness you feel intermittently may be from your new medications.
As soon as you feel dizzy or lightheaded, just sit down and rest for a few minutes, when going from laying to sitting to standing slowly
Interventions
Interventions:
*Risk Screen - Suicide Last Done: 12/05/24 11:03
*General Assessment Last Done: 12/05/24 11:08
*Neglect/Abuse Screening Last Done: 12/05/24 11:03
*Nursing Disposition Last Done: 12/05/24 14:37
ED- Neurological Assessment Last Done: 12/05/24 12:15
ED- Cardiac Assessment Last Done: 12/05/24 12:15
ED Swallowing Screen Last Done: 12/05/24 12:15
Discharge Date and Time
Discharge Date/Time: 12/05/24 14:37
Print Language: HUNGARIAN
== END 2024-12-05 14:37 | disposition home or self-care (01) ==
LOC: EMR 10:59
PROVIDERS: EMERGENCY PHYSICIAN Emergency Medicine; FAMILY PHYSICIAN Family Medicine
DX: R00.2 Palpitations (principal); R42 Dizziness and giddiness; I48.91 Unspecified atrial fibrillation; E11.9 Type 2 diabetes mellitus without complications; I10 Essential (primary) hypertension; F41.9 Anxiety disorder, unspecified; I25.10 Atherosclerotic heart disease of native coronary artery without angina pectoris; Z95.5 Presence of coronary angioplasty implant and graft; Z96.642 Presence of left artificial hip joint; Z86.718 Personal history of other venous thrombosis and embolism; Z79.899 Other long term (current) drug therapy; Z79.02 Long term (current) use of antithrombotics/antiplatelets; Z79.84 Long term (current) use of oral hypoglycemic drugs; Z88.0 Allergy status to penicillin; Z88.7 Allergy status to serum and vaccine; M19.90 Unspecified osteoarthritis, unspecified site
CPT/HCPCS: 99283; 80053; 85025; 93005

== ENCOUNTER 2024-12-11 13:06 | Inpatient (IN) | payer MEDICARE, SELFPAY ==
[2024-12-11] VITALS (18 sets, daily range): BP systolic 84–121; BP diastolic 54–95; BMI 35.0
[2024-12-11 08:16] LABS: Hematocrit 39.7 % (39.0-52.0); Hemoglobin 13.6 g/dL (13.0-18.0); Mean Corp Hgb Conc. 34.3 g/dL (33.0-37.0); Mean Corpuscular Volume 90.0 fL (80.0-94.0); Nucleated Red Blood Cells % 0 % (-); Platelet Count 211 10^3/uL (130-400); Red Cell Dist. Width 12.8 % (11.5-14.5)
--- NOTE | 2024-12-11 08:24 | ED.GENMED ---
History of Present Illness
General
Chief Complaint: Heart Rate Problem
Source: patient, records and spouse
Exam Limitations: none
Time Seen by Provider: 12/11/24 08:13
Nursing documentation reviewed up to this point in time: agreed with
History of Present Illness
History of Present Illness:
64-year-old male with a past medical history of hypertension, diabetes, atrial fibrillation, CAD status post stent who presents to the emergency department with his for evaluation of dizziness. Patient notably had stent in late October with
[facility] and has been doing cardiac rehab. Patient reports that he has had occasional dizziness/lightheadedness over the past week or so in fact was here in the emergency room 6 days ago for palpitations with uneventful workup. He says that
yesterday was dizzy for most of the day. This morning was still dizzy; he was scheduled for cardiac rehab and went despite his dizziness and there was found to be in atrial fibrillation and referred to the ER. Aside from dizziness he reports
occasional palpitations. He denies any chest pain or shortness of breath. Denies any other acute complaints. He has been on aspirin and Plavix as well as metoprolol since his stent in October.
Past History
Past History
ED Past Medical History: Arrthythmia (Atrial fibrillation), HTN, NIDDM and Other (Avascular necrosis of both hips)
ED Past Surgical History: Other (History of vasectomy, cardioversion for A. fib)
Social History
Tobacco: Non-smoker
Alcohol: None
Drug: None
Personal:
Living: with family
Employment: Employed
Family History
Family History: Other
Review of Systems
Review of Systems
All Other Systems: ROS reviewed and negative except as documented in HPI and ROS
Respiratory: Denies trouble breathing
Cardiac: Reports palpitations; Denies chest pain
ABD/GI: Denies abdominal pain, nausea or vomiting
: Denies flank pain
Musculoskeletal: Denies edema, neck pain or back pain
Neurological: Reports dizzy
Phy Exam
Physical Exam
Physical Exam:
General: Awake, alert, oriented x3; no acute distress
Head: Normocephalic, atraumatic
Eyes: Conjunctiva normal, EOMI
Throat: Airway intact, handling secretions
Neck: Trachea midline, no JVD
Lungs: Clear to auscultation bilaterally, no wheezing, rales, rhonchi
Heart: Regular rate and rhythm, no murmurs, gallops, or rubs
Neuro: No gross deficits
Skin: no rash
Extremities: No edema in extremities, warm and well-perfused
Scores
Heart Failure Risk
Heart Failure Risk Score: Not Applicable
Heart Score for Chest Pain Patients
STEMI patient?: Not applicable
Withdrawal Assessment of Alcohol
Withdrawal Assessment Completed?: Not applicable
Course
Orders/Labs/Results
Orders:
Orders
12/11/24 07:25
EKG [Electrocardiogram (*1)] Urgent
Reason for Study: Palpitations
EKG- Treatment ONCE
12/11/24 08:01
Complete Blood Count/With Diff Urgent
Comprehensive Metabolic Panel Urgent
PTT Urgent
Prothrombin Time Urgent
12/11/24 08:23
CARDIOLOGY CONSULT Urgent
Consulting Provider: Marshall Bradley
Was physician already notified: Yes
12/11/24 08:24
0.9% Sodium Chloride 1000 ml [Nss] 1,000 ml IV BOLUS
12/11/24 09:30
0.9% Sodium Chloride 1000 ml [Nss] 1,000 ml IV 100 mls/hr
Abnormal Lab Results
12/11/24
08:01
RBC 4.41 L 10^6/uL
(4.70-6.10)
Absolute Monos (auto) 0.8 H 10^3/uL
(0.1-0.6)
Monocytes % 9.6 H %
(1.7-9.3)
PT 14.8 H Sec
(11.4-14.6)
Carbon Dioxide 20 L mmol/L
(22-30)
BUN 51 H mg/dl
(9-20)
Creatinine 1.6 H mg/dL
(0.7-1.3)
Glucose 249 H mg/dl
(70-99)
AST 14 L U/L
(17-59)
12/11/24 08:01
12/11/24 08:01
Vital Signs
Initial and Last Documented VS:
Initial Vital Signs
Temp Pulse Resp BP Pulse Ox
36.4 C 57 16 103/66 97
12/11/24 07:20 12/11/24 07:20 12/11/24 07:20 12/11/24 07:20 12/11/24 07:20
Last Documented Vital Signs
Temp Pulse Resp BP Pulse Ox
36.4 C 112 28 91/79 96
12/11/24 07:20 12/11/24 11:00 12/11/24 11:00 12/11/24 10:30 12/11/24 11:00
MDM/Problems Addressed
Differential Diagnosis Includes:
Atrial fibrillation
MDM/Problems Addressed:
64-year-old male presents for evaluation of dizziness and palpitations�intermittent over the past week but more persistent since yesterday, today at cardiac rehab was found to be in A-fib with RVR. He is mildly hypotensive here with a blood
pressure of 84/61. Heart rate fluctuates between high 90s and low 120s. Physical exam as above. Place large-bore IV send labs including a CBC and a CMP, coags. Will provide some IV fluids to start and reassess�he has no ischemic chest pain only
mildly dizzy and not on anticoagulation; hesitant to proceed with cardioversion given no AC however diltiazem/metoprolol likely to worsen soft blood pressure. Discussed with cardiology for consultation.
Labs reviewed: CBC unremarkable, CMP shows mild TAO with a creatinine of 1.6. Random glucose 249. After 1 L of fluids blood pressure remains soft at 91/79, remains tachycardic with heart rate 110-120. Cardiology evaluated the bedside plan to
admit plan for SHANIA cardioversion tomorrow. For now we will continue with fluids and if not improving consider amiodarone infusion. Discussed case with hospitalist for admission.
Chronic conditions affecting care:
Atrial fibrillation
*Pulse Oximetry
SaO2: 97
Oxygen Mode of Delivery: Room air
Patient hypoxic: no (97%)
*EKG
Interpreted by ED Provider?: Yes
Heart Rate: 103
Rate: tachycardiac
Rhythm: a-fib
[place]: left axis deviation
Interval: normal interval
QRS Pattern: wide non-specific
Ischemia: T-wave inversion (Nonspecific T wave abnormality)
*Critical Care Note
Total Time (30-74mins, 75-104mins- exclusive of procedures): Not Applicable
Data Reviewed
Review of Other/Old Records Reveals: Labs and Records
Source: patient and records
Patient Management
Discussion with other providers: Hospitalist (Discussed with hospitalist) and [employer] (Discussed with cardiology)
Escalation/DeEscalation of care consider admission/obs:
Admission indicate
ED Attending Note
-
Portions of this chart may have been created with voice recognition software.� Occasional wrong word or��sound alike� substitutions may have occurred due to the inherent limitations of voice recognition software.
Discharge Plan
Departure
Patient Disposition: Admit
Date of Disposition: 12/11/24
Time of Disposition: 11:11
Admit to doctor: Clifford
Presentation/result/management discussed w/ accepting MD/DO: Hospitalist
Discharge Problem:
Atrial fibrillation with RVR, TAO (acute kidney injury), Hyperglycemia
Prescriptions:
No Action
metformin 500 MG tablet
1,000 mg PO BID
glipizide 10 mg Tablet Extended Release 24hr
10 mg PO DAILY
cyanocobalamin (vitamin B-12) 1,000 mcg Tablet
1,000 mcg PO DAILY
therapeutic multivitamin Tablet
1 tab PO DAILY
aspirin 81 mg Tablet,Delayed Release (Dr/Ec)
81 mg PO DAILY
zinc sulfate 50 mg zinc (220 mg) Tablet
50 mg PO DAILY
vitamin A 3,000 mcg (10,000 unit) Capsule
3,000 mcg PO DAILY
calcium carbonate 500 mg calcium (1,250 mg) Tablet
500 mg PO DAILY
cholecalciferol (vitamin D3) [Vitamin D3] 25 mcg (1,000 unit) Tablet
25 mcg PO DAILY
omega 6-gbq-eaf-fish oil [Fish Oil] 1,000 (120-180) mg Capsule
1 cap PO DAILY
cranberry 450 mg Tablet
450 mg PO DAILY
Glucosamine Chondroitin 550-30-1 mg Capsule
1 cap PO DAILY
atorvastatin 40 mg Tablet
40 mg PO QPM Qty: 30 0RF
clopidogrel 75 mg Tablet
75 mg PO DAILY Qty: 30 0RF
furosemide 80 mg Tablet
80 mg PO BID@0800,1600 Qty: 60 0RF
metoprolol succinate 25 mg Tablet Extended Release 24 Hr
25 mg PO HS Qty: 30 0RF
lisinopril 2.5 mg Tablet
2.5 mg PO DAILY Qty: 30 0RF
dapagliflozin propanediol [Farxiga] 10 mg tablet
10 mg PO DAILY Qty: 30 0RF
Referrals:
Miryam Rosales DO [Family Provider, Family Practice]
Interventions
Interventions:
*Risk Screen - Suicide Last Done: 12/11/24 07:20
*General Assessment Last Done: 12/11/24 07:51
*Neglect/Abuse Screening Last Done: 12/11/24 07:20
*ED- Fall Risk Assessment Last Done: 12/11/24 07:51
*ED COVID-19 Vaccine History Last Done: 12/11/24 07:51
ED- Cardiac Assessment Last Done: 12/11/24 08:02
ED- Pulmonary Assessment Last Done: 12/11/24 08:02
Discharge Date and Time
Print Language: GABONESE
[2024-12-11] MEDS: NSS 1000 IV ×2 (08:28→09:33)
[2024-12-11 08:54] LABS: APTT 26.2 Sec (23.4-35.0); INR 1.13; PT 14.8 Sec (11.4-14.6)
[2024-12-11 09:00] LABS: ALT (SGPT) 13 U/L (0-50); AST (SGOT) 14 U/L (17-59); Albumin 4.3 g/dl (3.5-5.0); Alkaline Phosphatase 51 U/L (38-126); Blood Urea Nitrogen 51 mg/dl (9-20); Calcium 9.6 mg/dl (8.4-10.2); Carbon Dioxide 20 mmol/L (22-30); Chloride 104 mmol/L (98-107); Estimated Creatinine Clearance 66 ml/min; Glucose 249 mg/dl (70-99); Potassium 4.1 mmol/L (3.5-5.1); Sodium 138 mmol/L (135-145); Total Protein 7.7 g/dl (6.3-8.2); eGFR 47.52
--- NOTE | 2024-12-11 12:49 | HPS.HSE ---
Family Physician
-
Family Physician: Miryam Rosales, DO
Chief Complaint
-
Dizziness/palpitation
History of Present Illness
Patient is a 64-year-old male with past medical history of history of A-fib, systolic congestive heart failure, CAD status post stenting earlier this year, hyperlipidemia, type 2 diabetes mellitus was sent from cardiac rehab after patient was noted
to be having A-fib and new onset dizziness. Patient underwent coronary artery catheterization and stenting in October 29. Patient was referred to cardiac rehab and has been going for few days when today patient was noted to having irregular heartbeat.
Patient was also was having some dizziness. Patient was here in the ER on December 05 for similar issues and workup was relatively normal, patient was discharged back to home level. Patient symptoms are going on and off for last 6 days and today
during the cardiac rehab visit patient was noted to be in A-fib and was sent in for further evaluation.
In ER patient was noted to be hypotensive and in A-fib with rapid heart rate. Patient overall anxious and concerned about repeated episodes of dizziness. Denies any associated chest discomfort. No reported nausea/diaphoresis. No other GI or
complaints.
Medical History
Past Medical History
Past Medical History: Reports Other
Additional Past Medical History:
history of A-fib, systolic congestive heart failure, CAD status post stenting earlier this year, hyperlipidemia, type 2 diabetes mellitus
Past Surgical History: Reports Other
Social History
Tobacco: Non-smoker
Alcohol: None
Drug: None
Personal:
Living: With Family
Family History
Family History: Not pertinent
Allergies / Home Medications
Allergies reflects when Allergies were last updated in [employer].
Home Medications with original date entered in [employer]
Allergy/Medication List:
Allergies
Allergy/AdvReac Type Severity Reaction Status Date / Time
Penicillins Allergy Anaphylaxis Verified 12/11/24 07:19
Tetanus Vaccines and Toxoid Allergy Anaphylaxis Verified 12/11/24 07:19
(Tetanus)
Home Medications
aspirin 81 mg tablet,delayed release 81 mg PO DAILY 10/28/24
cranberry fruit 450 mg tablet (cranberry) 4,200 mg PO DAILY Supplement 10/28/24
cyanocobalamin (vitamin B-12) 1,000 mcg tablet 1,000 mcg PO DAILY Supplement 10/28/24
glipizide 10 mg tablet, extended release 24 hr 10 mg PO DAILY Diabetes 10/28/24
glucosamine sulf dipot chlr,msm,chond 550 mg-C 30 mg-ervin 1 mg capsule (Glucosamine Chondroitin) 1 cap PO DAILY Supplement 10/28/24
omega 7-ldk-mdz-fish oil 1,000 mg (120 mg-180 mg) capsule (Fish Oil) 1 cap PO DAILY Supplement 10/28/24
therapeutic multivitamin 1 tab PO DAILY Supplement 10/28/24
zinc sulfate 50 mg zinc (220 mg) tablet 50 mg PO DAILY Supplement 10/28/24
Lactobac no.2-Bifidobac no.1-S. thermo 112.5 billion cell capsule (Visbiome) 1 cap PO DAILY Gastrointestinal Issue 12/11/24
ascorbic acid (vitamin C) 500 mg tablet (Vitamin C) 1,500 mg PO DAILY Supplement 12/11/24
atorvastatin 40 mg tablet 40 mg PO QPM High Cholesterol 12/11/24
cinnamon bark 500 mg capsule (Cinnamon) 2,000 mg PO DAILY Supplement 12/11/24
clopidogrel 75 mg tablet 75 mg PO DAILY Blood Clot Prevention/Tx 12/11/24
dapagliflozin propanediol 10 mg tablet (Farxiga) 10 mg PO DAILY heart protection 12/11/24
furosemide 80 mg tablet 80 mg PO DAILY Fluid Retention/Swelling 12/11/24
garlic 1,000 mg capsule 1,000 mg PO DAILY Supplement 12/11/24
ricardo (Zingiber officinalis) 250 mg capsule 250 mg PO DAILY Supplement 12/11/24
ginkgo biloba 120 mg tablet 120 mg PO DAILY Supplement 12/11/24
lisinopril 2.5 mg tablet 2.5 mg PO DAILY Blood Pressure 12/11/24
metformin 1,000 mg tablet 1,000 mg PO BID Diabetes 12/11/24
metoprolol succinate 25 mg tablet,extended release 24 hr 25 mg PO HS Blood Pressure 12/11/24
saw palmetto 160 mg capsule 250 mg PO DAILY Supplement 12/11/24
turmeric 400 mg capsule 400 mg PO DAILY Supplement 12/11/24
vitamin A 2,400 mcg capsule 2,400 mcg PO DAILY Supplement 12/11/24
Review of Systems
-
A 12 point ROS was completed and negative except as noted: Yes
Physical Exam
Vital Signs
Vital Signs
Temp Pulse Resp BP Pulse Ox
97.5 F 110 20 97/69 96
12/11/24 07:20 12/11/24 12:30 12/11/24 12:30 12/11/24 11:30 12/11/24 12:30
Physical Exam
General: Well Developed, Well Nourished and No Apparent Distress
HEENT: NormoCephalic, Moist mucous membranes and Atraumatic
Respiratory: Clear
Cardiac: S1/S2 and Irregular Rhythm; No Murmur or Rub
GI: Soft, Non Tender and Non Distended; No Organomegaly
Rectal: Deferred by Provider
Musculoskeletal: No Clubbing, No Cyanosis and No Edema
Skin: No Rash
Neuro: Nonfocal/grossly intact
Laboratory Results
-
12/11/24 08:01
12/11/24 08:01
Laboratory Results
PT 14.8 Sec (11.4-14.6) H 12/11/24 08:01
INR 1.13 12/11/24 08:01
APTT 26.2 Sec (23.4-35.0) 12/11/24 08:01
Total Bilirubin 0.7 mg/dl (0.2-1.3) 12/11/24 08:01
AST 14 U/L (17-59) L 12/11/24 08:01
ALT 13 U/L (0-50) 12/11/24 08:01
Alkaline Phosphatase 51 U/L (38-126) 12/11/24 08:01
Impression/Plan
-
1. Paroxysmal atrial fibrillation with RVR
-Patient have history of A-fib few years back which was treated with cardioversion and has been A-fib free
-Today patient was noted to have regular heart rate with fast rhythm and was sent in to ER for further evaluation
-In ER patient was diagnosed to be A-fib with RVR
-Patient already on aspirin/Plavix, cardiology recommended to discontinue aspirin and start patient on Eliquis
-Plan for patient to undergo SHANIA/DCCV tomorrow
-Cardio providing toprol xl 25mg/hs
2. Hypotension
-Likely explaining patient dizziness episode and related to A-fib
-Patient was provided 1 L of normal saline by ER, avoid further IV fluid as patient have history of systolic heart failure
-Hold diuretics with associated renal dysfunction as well
3. Acute kidney injury
-Creatinine elevated to 1.6, baseline close to 0.9-1
- Hold diuretics/metformin/lisinopril
-Already got 1 L of NS in ER
- Follow-up renal functions
4. Chronic systolic congestive heart failure
- No signs of volume overload
- Hold diuretics/part of GDMT due to renal dysfunction
5. Type 2 diabetes mellitus
- Hold metformin/glipizide with new TAO
- maintain on ISS
6. AGAP met acidosis
- minimal and may be from renal dysfunction
- providing one dose of bicarb
DVT PPX - Eliquis
Full code
Total time spent : 78 mins
I personally saw and examined the patient.
I have reviewed all diagnostic interpretations and treatment plans as written.
Time includes patient management by me, time spent at the patients bedside, time to review lab and imaging results, discussing patient care, documentation in the medical record, and time spent with the family or caregiver and discussing care plan
with RN/Consultants.
--- NOTE | 2024-12-11 12:57 | CON.CAR ---
Addendum entered and electronically signed by Marshall Bradley MD 12/11/24 14:48:
I saw and examined the patient.
Dr. Ayala's note was reviewed and I agree with the note.
Comment:
64-year-old man with NICM and heart failure with reduced ejection fraction (20-25%), coronary artery disease s/p PCI to OM 3 in October 2024, paroxysmal atrial fibrillation (not on AC) who presents with palpitations. Cardiology is consulted for atrial
fibrillation. Patient is currently undergoing cardiac rehab following hospitalization in October during which he underwent PCI as above and was found to have LVEF 20-25%. Prior to that he had not seen a apprenticeship representative since 2012 when he was noted to
have a nonischemic cardiomyopathy with EF as low as 25% on echo. He has been doing well at cardiac rehab and today presented to the ER for palpitations and felt like his heart was skipping a beat. He denies chest pressure, shortness of breath,
lower extremity edema. He has been struggling with dizziness/lightheadedness at home.
Physical exam notable for irregular rate/rhythm, no murmurs, rubs or gallops, lungs are clear to auscultation bilaterally and there is no lower extremity edema.
Last TTE 11/13/2024: Severely dilated LV, LVEF 20-25%, no VHD
RHC/LHC 10/31/2024: Weight 128 kg, RA 14 PA 56/32 (40), PCWP 32, LVEDP 31, CO/CI 6.6/2.6; 70% ostial RPDA (IFR 0.89), 50% mid LAD (IFR 0.94), 90% proximal OM 3 s/p PCI
Patient was found to have atrial fibrillation in the ER with heart rates in the 100s�110s. He was also hypotensive, as low as 70s/50s. Hypotension somewhat improved with IV fluid resuscitation. There is no obvious explanation for his hypotension;
he does not report any fevers, WBC within normal limits, no anemia, so I wonder if he is unable to tolerate atrial fibrillation due to his severely reduced ejection fraction. Hypotension could also be iatrogenic from his GDMT but it does not
explain the acute change (BPs have been fine at cardiac rehab recently). In terms of managing his atrial fibrillation, he is not a good candidate for beta-blockers or calcium channel blockers given his hypotension and history of severely reduced
EF. I think we can hold off on amiodarone for now given that his BPs are stable and he is asymptomatic. [id number] (CHF, HTN, DM, age, vasc dz). We will plan to start him on Eliquis and do a SHANIA/DCCV tomorrow morning. We will also consult
case management for DOAC pricing. Given that we are starting systemic anticoagulation, we will stop his aspirin and continue him on Plavix/Eliquis. He will also continue his atorvastatin. For GDMT, he is on lisinopril 2.5 mg, Farxiga, and
metoprolol 25 mg daily. Hold lisinopril for now given borderline low BPs. Okay to continue metoprolol and Farxiga. His BUN/creatinine is elevated; Lasix was recently decreased from 80 twice daily to 80 daily. We may need to decrease to 40 mg
daily. Trend with holding diuresis today.
Original Note:
Consultation
Consultation Request
Date/Time Consultation Requested: 12/11/2024 9:09 am
Date/Time Consultation Performed: 12/11/2024 09:45am
Requesting Provider: Dr. Kei Maldonado
Performing Provider: Dr. Marshall Bradley
Reason for Consultation: A.fib with RVR
Medical History
-
Chief Complaint: A.fib with RVR
History of Present Illness:
64-year-old male with past medical history of CAD status post stent x1 (10/2024), cardiomyopathy 2012 (echo 02/08/2013 severe global hypokinesis EF 20 to 25% no valvular abnormalities), A-fib status post cardioversion 2007, provoked DVT/PE 2012
after left hip replacement, elective IVC filter placement before elective right hip replacement 2012 (IVC still present), diabetes II, and hypertension presented to outside hospital from cardiac rehab after found to be in A-fib. Patient recently
hospitalized from 10/28/2024 to 11/01/2024 for NSTEMI and acute on chronic heart failure exacerbation (most recent echo 11/13/24 LVEF 20-25%) with subsequent stent placement (OM3 90% occlusion) discharged on DAPT and was diuresed 11kg. Over the past
week, patient has noted some lightheadedness and episodes of heart palpitations. Today, in cardiac rehab he did have a little bit of lightheadedness and sensation of heart 'thudding,' was found to be in A-fib and told to come to the ED. Of note, on
12/05/2024, patient presented to ED because he thought he was in A-fib, but was found to be in sinus rhythm and discharged. He currently denies any chest pain, heart palpitations, shortness of breath, leg swelling. He denies any fevers, chills,
upper respiratory tract infection symptoms, chest pain, heart palpitations.
In the ED, BP 96/66 and HR 109 on admission later dropping to 89/56 with HR in the 110s-low 120s. Cr 1.6, blood glucose 249, 11/13/2024 LDL 65 and HgA1c 8.3. EKG in a.fib. Pt given 1L bolus NS then started on fluids 100 mls/hr. Pt currently feels
well with MAP 85 after fluids. Cardiology consulted for recommendations of A.fib with RVR in setting of hypotension. Pt notes that since being on more BP medications since PCI, BP has been stable however sometimes it is 90/60 at home.
Past Medical History
Past Medical History: Arrhythmias, CAD, CHF (HFrEF (11/13/24 LVEF 20-25%)), HTN, NIDDM and Other (CAD status post stent x1 (10/2024), cardiomyopathy 2012 (echo 02/08/2013 severe global hypokinesis EF 20 to 25% no valvular abnormalities), A-fib
status post cardioversion 2007, provoked DVT/PE 2012 after left hip replacement, elective IVC filter placement before elective right hip replacement 2012 )
Past Surgical History: Other (Bilateral hip replacement, IVC filter placement 2012, cardiac cath 2012, PCI 10/2024)
Social History
Tobacco: Non-Smoker
Alcohol: None
Drug: None
Personal:
Living: With Family
Family History
Family History: Other (Brothers SD and CABG, mom SD)
Allergies / Home Medications
Allergy/AdvReac Type Severity Reaction Status Date / Time
Penicillins Allergy Anaphylaxis Verified 12/11/24 07:19
Tetanus Vaccines and Toxoid Allergy Anaphylaxis Verified 12/11/24 07:19
(Tetanus)
�Medication �Instructions �Recorded �Confirmed �Type
aspirin 81 mg tablet,delayed 81 mg PO DAILY 10/28/24 12/11/24 History
release
cranberry fruit 450 mg tablet 4,200 mg PO DAILY 10/28/24 12/11/24 History
(cranberry)
cyanocobalamin (vitamin B-12) 1,000 mcg PO DAILY 10/28/24 12/11/24 History
1,000 mcg tablet
glipizide 10 mg tablet, extended 10 mg PO DAILY 10/28/24 12/11/24 History
release 24 hr
glucosamine sulf dipot 1 cap PO DAILY 10/28/24 12/11/24 History
chlr,msm,chond 550 mg-C 30 mg-ervin
1 mg capsule (Glucosamine
Chondroitin)
omega 9-zaq-vpg-fish oil 1,000 mg 1 cap PO DAILY 10/28/24 12/11/24 History
(120 mg-180 mg) capsule (Fish Oil)
therapeutic multivitamin 1 tab PO DAILY 10/28/24 12/11/24 History
zinc sulfate 50 mg zinc (220 mg) 50 mg PO DAILY 10/28/24 12/11/24 History
tablet
atorvastatin 40 mg tablet 40 mg PO QPM #30 tabs 11/01/24 12/11/24 Rx
clopidogrel 75 mg tablet 75 mg PO DAILY #30 tabs 11/01/24 12/11/24 Rx
dapagliflozin propanediol 10 mg 10 mg PO DAILY #30 tabs 11/01/24 12/11/24 Rx
tablet (Farxiga)
lisinopril 2.5 mg tablet 2.5 mg PO DAILY #30 tabs 11/01/24 12/11/24 Rx
metoprolol succinate 25 mg 25 mg PO HS #30 tabs 11/01/24 12/11/24 Rx
tablet,extended release 24 hr
Lactobac no.2-Bifidobac no.1-S. 1 cap PO DAILY 12/11/24 12/11/24 History
thermo 112.5 billion cell capsule
(Visbiome)
ascorbic acid (vitamin C) 500 mg 1,500 mg PO DAILY 12/11/24 12/11/24 History
tablet (Vitamin C)
cinnamon bark 500 mg capsule 2,000 mg PO DAILY 12/11/24 12/11/24 History
(Cinnamon)
furosemide 80 mg tablet 80 mg PO DAILY 12/11/24 12/11/24 History
garlic 1,000 mg capsule 1,000 mg PO DAILY 12/11/24 12/11/24 History
ricardo (Zingiber officinalis) 250 250 mg PO DAILY 12/11/24 12/11/24 History
mg capsule
ginkgo biloba 120 mg tablet 120 mg PO DAILY 12/11/24 12/11/24 History
metformin 1,000 mg tablet 1,000 mg PO BID 12/11/24 12/11/24 History
saw palmetto 160 mg capsule 250 mg PO DAILY 12/11/24 12/11/24 History
turmeric 400 mg capsule 400 mg PO DAILY 12/11/24 12/11/24 History
vitamin A 2,400 mcg capsule 2,400 mcg PO DAILY 12/11/24 12/11/24 History
Review of Systems
-
History Source: Patient
Constitutional: No Symptoms
EENT: No Symptoms
Respiratory: No Symptoms
Cardiac: No Symptoms
Abdomen/GI: No Symptoms
Skin: No Symptoms
Physical Exam
Vital Signs
Temp Pulse Resp BP Pulse Ox
97.5 F 110 20 97/69 96
12/11/24 07:20 12/11/24 12:30 12/11/24 12:30 12/11/24 11:30 12/11/24 12:30
Lab Results
12/11/24 08:01
12/11/24 08:01
Physical Exam
General: Well Developed, No Apparent Distress and Comfortable
HEENT: Normocephalic
Respiratory: Clear
Cardiac: Irregular Rhythm
GI: Soft, Non Tender, Non Distended and Normal Bowel Sounds
Musculoskeletal: No Clubbing and No Edema
Skin: Warm and Dry
Neuro: AO x 3
Psych: Calm
Impression / Plan
-
64-year-old male with past medical history of CAD status post stent x1 (10/2024), cardiomyopathy 2013 (echo 02/08/2013 severe global hypokinesis EF 20 to 25% no valvular abnormalities), A-fib status post cardioversion 2007, provoked DVT/PE 2012
after left hip replacement, elective IVC filter placement before elective right hip replacement 2012 (IVC still present), diabetes II, and hypertension presented to outside hospital from cardiac rehab after found to be in A-fib with RVR and
hypotension. He did have A.fib in 2007 s/p cardioversion and has been on warfarin for a period of time in the past with hx DVT/PE with IVC filter placed. It is unclear whether hypotension is due to A.fib, or iatrogenic with new medications since PCI
in October.
Primary Set Illustrator: Don Lombardo after PCI
A.fib with RVR with hypotension
-EKG A.fib, HR in 110s-low 120s. Pt currently asymptomatic.
-CV2 score 4 for age 64, HTN, CAD, DMII
-Start eliquis 5 mg BID for
-Cont home metoprolol ER 25 mg daily for rate control
-Will consider amiodarone drip if BP drops, but pt appears stable after fluid bolus and HR in 110s is acceptable at the moment
-Plan for SHANIA in the am and cardioversion if no clot
-NPO after midnight
CAD s/p PCI OM3 10/2024
-Denies any chest pain
-d/c asa and continue plavix
-LDL goal <55 - currently 65 - continue atorvastatin 40 as it is a new med and drop from 118 in 10/29/24 to 65 on 11/13/24
HFrEF
Hx cardiomyopathy 2012
-Not in exacerbation. Denies any SOB, no peripheral edema or crackles in lung antoine
-Pt stated he feels incredibly dehydrated - he recently had some vision issues and his rail specialist told him it was because he was dehydrated
-11/13/24 LVEF 20-25%
-Decrease lasix 80 daily to 40 daily once cr improves
-Monitor I&Os
-Daily weights
-Fluid restriction
TAO
-Cr 1.6, baseline 1.0
-Hold furosemide until Cr improves
-Likely restart at 40mg daily rather than 80 as pt felt very dehydrated
Hypertension
-Baby dose lisinopril for years with PCP at 2.5
-d/c lisinopril as BP low and now on metoprolol
HLD
-Goal <55
-Continue atorvastatin 40
DM II
-Last HgA1c 11/13/24 8.3
-Cont metformin 1000 BID, glipizide 5mg daily, farxiga 10mg daily
-SSI
Hx provoked DVT/PE after right hip replacement with elective IVC filter placement prior to L hip replacement
-IVF filter still placed - unable to removed as 'lodged in vein.' Pt was told he would need surgery at [facility] for removal if he wanted it and he opted not to.
-DVT risk x2 with IVF filter so monitor while hospitalized
-DVT prophylaxis eliquis
DVT eliquis
Full code
--- NOTE | 2024-12-11 14:56 | CM ---
CM received consult and met with pt and his bedside in ED.
Pt lives with his and adult daughter in split level home, 1 COREY, 3 steps to kitchen, 7-8 steps to BR/full BA, has half BA on Family Room level.
Independent in ADLs, personal care and ambulation at baseline. No DME.
Hx [facility] in past, no hx SNF
Discussed Eliquis pricing with pt and , I spoke to [facility], christy would be $47.00 a month for either 2.5 or 5mg BID.
PCP: Miryam Rosales
Pharmacy: [facility] Doming[facility]
--- NOTE | 2024-12-11 15:55 | PHANOTE ---
Medication List and Bleeding Risk
Patient on many supplements and now receiving apixaban.
Discussed with patient and spouse the increased bleeding risk while on an anticoagulant: tumeric, vitamin A, ginko, ricardo, garlic, saw palmetto.
Patient agreeable to stopping associated supplements.
[2024-12-11] MEDS: PLAVIX 75 MG PO (17:36)
[2024-12-11] MEDS: LIPITOR 40 MG PO (17:36)
[2024-12-11 17:50] LABS: Glucose - Point of Care 140 mg/dl (70-99)
--- NOTE | 2024-12-11 18:48 | PTCARENOTE ---
pt admit from ed. pt of afib on the monitor, hr in the 120s, vss. pt denies sob/ cp. pt ambulated on br and tolerated well. pt educated on plan of care and pt verbalized understanding. at bedside visiting. call mitchell within reach.
[2024-12-11] MEDS: ELIQUIS 5 MG PO (19:26)
[2024-12-11] MEDS: TOPROL XL 25 MG PO (22:29)
[2024-12-11 22:30] LABS: Glucose - Point of Care 162 mg/dl (70-99)
[2024-12-12 01:59] VITALS: BMI 35.0
--- NOTE | 2024-12-12 02:01 | PTCARENOTE ---
Rec'd pt at change of shift. Pt AAO*3, VSS, and Afib on TELE monitor with PVC's. Pt NPO at midnight for possible SHANIA cardioversion. Pt verbalizes understanding of care plan and upcoming procedure. Pt resting with call mitchell in reach and plan of
care ongoing. See MAR and flowchart for full pt care and assessment.
[2024-12-12 04:37] VITALS: BP 126/101
[2024-12-12 04:38] VITALS: BP 126/101
[2024-12-12 04:47] VITALS: BMI 34.3
[2024-12-12 05:21] LABS: Hematocrit 38.3 % (39.0-52.0); Hemoglobin 12.9 g/dL (13.0-18.0); Mean Corp Hgb Conc. 33.7 g/dL (33.0-37.0); Mean Corpuscular Volume 91.0 fL (80.0-94.0); Platelet Count 193 10^3/uL (130-400); Red Cell Dist. Width 12.9 % (11.5-14.5)
[2024-12-12 05:46] LABS: Blood Urea Nitrogen 45 mg/dl (9-20); Calcium 9.6 mg/dl (8.4-10.2); Carbon Dioxide 25 mmol/L (22-30); Chloride 110 mmol/L (98-107); Estimated Creatinine Clearance 87 ml/min; Glucose 129 mg/dl (70-99); Potassium 3.8 mmol/L (3.5-5.1); Sodium 140 mmol/L (135-145); eGFR > 60.00
[2024-12-12 07:32] LABS: Glucose - Point of Care 146 mg/dl (70-99)
[2024-12-12 07:33] VITALS: BP 102/68
[2024-12-12] MEDS: PLAVIX 75 MG PO (07:46)
[2024-12-12] MEDS: ELIQUIS 5 MG PO (07:46)
[2024-12-12] MEDS: FARXIGA 10 MG PO (07:46)
--- NOTE | 2024-12-12 08:03 | PTCARENOTE ---
cathode ray tube assembler called for report, patient remains NPO for SHANIA/CV this am. am medications given. monitor shows Afib, VSS.
--- NOTE | 2024-12-12 08:11 | W.PN.CD ---
Addendum entered and electronically signed by Timo Young MD 12/12/24 11:29:
I saw and evaluated the patient. I reviewed the resident�s note and agree with findings and plan as documented in the resident�s note.
He is feeling better.
He is irreg irreg to RRR post DCCV
PAF, now in NSR, with EF 20% would consider a Rhythm control strategy as op
continue Eliquis
HFrEF: lets call this his new dry weight. Agree with reduction of furosemide dose to 40 daily and reassess response as op
GDMT limited by bp, can optimize as op
CAD: recent PCI needs to continue clopidogrel with Eliquis
Ok to discharge home from cardiac perspective with op follow up with Dr Bradley
Original Note:
Today's Communication / Plan
-
SHANIA this am and cardioversion
Impression / Plan
-
64-year-old male with past medical history of CAD status post stent x1 (10/2024), cardiomyopathy 2012 (echo 02/08/2013 severe global hypokinesis EF 20 to 25% no valvular abnormalities), A-fib status post cardioversion 2007, provoked DVT/PE 2012
after left hip replacement, elective IVC filter placement before elective right hip replacement 2012 (IVC still present), diabetes II, and hypertension presented to outside hospital from cardiac rehab after found to be in A-fib with RVR and
hypotension. He did have A.fib in 2007 s/p cardioversion and has been on warfarin for a period of time in the past with hx DVT/PE with IVC filter placed. It is unclear whether hypotension is due to A.fib, or iatrogenic with new medications since PCI
in October.
Primary Traffic Circuit Engineer: Saw Radha Lombardo MACHINE GUIDE BASE WINDER after PCI
Paroxismal A.fib with RVR
Hypotension
--[facility] -since then has been a.fib free
--Overnight HR stable 90s-low 120s
--BP stable - will consider amiodarone drip of BP drops
--CV2 score 5 for age 64, HTN, CAD, DMII, CHF
--Eliquis 5 mg BID
--Cont home metoprolol ER 25 mg daily for rate control
--Plan for SHANIA this morning and cardioversion if no clot
--NPO until after cardioversion
CAD s/p PCI OM3 10/2024
-Denies any chest pain
-d/c asa and continue plavix
-LDL goal <55 - currently 65 - continue atorvastatin 40 as it is a new med and drop from 118 in 10/29/24 to 65 on 11/13/24
HFrEF
Hx cardiomyopathy 2012
-Not in exacerbation. Denies any SOB, no peripheral edema or crackles in lung antoine
-Pt stated he feels incredibly dehydrated - he recently had some vision issues and his homeworker told him it was because he was dehydrated
-11/13/24 LVEF 20-25%
-Decrease lasix 80 daily to 40 daily once cr improves
-Monitor I&Os
-Daily weights
-Fluid restriction
TAO
-Cr 1.6 -> 1.2 this am, baseline 1.0
-Likely restart at 40mg daily rather than 80 as pt felt very dehydrated
Hypertension
-Baby dose lisinopril for years with PCP at 2.5
-d/c lisinopril as BP low and now on metoprolol
HLD
-Goal <55
-Continue atorvastatin 40
DM II
-Last HgA1c 11/13/24 8.3
-hold metformin 1000 BID, glipizide 5mg in setting of acute TAO and acute illness
- Cont farxiga 10mg daily
-SSI
Hx provoked DVT/PE after right hip replacement with elective IVC filter placement prior to L hip replacement
-IVF filter still placed - unable to removed as 'lodged in vein.' Pt was told he would need surgery at [facility] for removal if he wanted it and he opted not to.
-DVT risk x2 with IVF filter so monitor while hospitalized
-DVT prophylaxis eliquis
DVT eliquis
Full code
Physical Exam
Vital Signs/Labs
Vital Signs
Temp Pulse Resp BP Pulse Ox
97.8 F 102 18 126/101 97
12/12/24 07:34 12/12/24 07:34 12/12/24 07:34 12/12/24 04:38 12/12/24 07:34
12/11/24 12/12/24 12/13/24
06:59 06:59 06:59
Actual Weight 124.6 kg
12/12/24 04:45
12/12/24 04:45
PT 14.8 Sec (11.4-14.6) H 12/11/24 08:01
INR 1.13 12/11/24 08:01
APTT 26.2 Sec (23.4-35.0) 12/11/24 08:01
Physical Exam
Constitutional: Comfortable
Cardiovascular: Rhythm/rate is irregular and Murmur/rub/gallop absent
Respiratory: Lungs clear to auscul.
GI: Soft, Distention absent, Non tender and Normal bowel sounds
Neuro/Psych: AO x 3
Data Reviewed
-
Date of Service: December 12, 2024
--- NOTE | 2024-12-12 09:04 | PTCARENOTE ---
received patient this am in bed sleeping. patient is presently awake, am medications given with WHY he is taking them, patient understands. also. insulin injection was reviewed, patient babatunde up his 3 units of NovoLog insulin by himself, did well,
also discussed HgbA1C and ways to improve that, patient was very receptive.monitor shows NSR, VSS. right radial dsg. D/I, distal pulse palpable.
[2024-12-12 09:59] VITALS: BP 111/61
[2024-12-12 10:00] VITALS: BP 111/61
--- NOTE | 2024-12-12 10:01 | PTCARENOTE ---
returned to room with successful CV. VSS. monitor NSR. patient feels 'good'. he asked when he can be discharged.
--- NOTE | 2024-12-12 11:07 | CM ---
Reviewed chart. Met with and Mrs. Nascimento to review discharge plans. He states he is hoping to go home soon. Prior to admission he resides with his spouse and daughter in a spilt level home with one step to enter. He has eight steps to get to
his bedroom/full bathroom. He has a powder room on the first floor. Prior to admission he was independent with ambulation and adls. He does not have any DME in the home. He has a prescription plan and uses [facility]. Placed the one
month free Eliquis coupon in his red discharge folder. Medical work-up in progress. The discharge plan is to return home with his spouse and daughter when medically stable.
[2024-12-12 11:27] LABS: Glucose - Point of Care 173 mg/dl (70-99)
--- NOTE | 2024-12-12 11:33 | ITS.CL.CARDI ---
Dramatic Arts Historian - Cardioversion
Cardioversion
Procedure Report:
Date of Procedure: 12/12/24.
Procedure: Cardioversion.
Indication: Symptomatic atrial fibrillation.
Performing Physician: Karolina Yonug MD
Technique: The patient was brought to the holding area. Signed informed consent was obtained. A time out was called and performed. The patient was sedated by a member of the anesthesia service. SHANIA was performed and did not show suggestion of
intracardiac thrombus.Anticoagulation status was reviewed and was appropriate. R-2 pads were placed anteriorly and posteriorly. Patient received 3 biphasic synchronized shocks at 200, 300, & 360 J to finally restore sinus rhythm from atrial
fibrillation There were no complications.
Conclusion: Uncomplicated cardioversion from atrial fibrillation to sinus rhythm.
Recommendation: Routine post cardioversion care. Continue emt intermediate anticoagulation.
cc: Dr. Hernandez
--- NOTE | 2024-12-12 11:39 | W.PN.HOSP.TC ---
Today's Communication/Plan
-
d/c
Assessment / Plan
Assessment / Plan
pt is a 64 year old male
Paroxysmal atrial fibrillation with RVR--s/p SHANIA with CV--cleared for d/c by cards
-Patient have history of A-fib few years back which was treated with cardioversion and has been A-fib free
-Today patient was noted to have regular heart rate with fast rhythm and was sent in to ER for further evaluation
-In ER patient was diagnosed to be A-fib with RVR
-Patient already on aspirin/Plavix, cardiology recommended to discontinue aspirin and start patient on Eliquis
-Cardio providing toprol xl 25mg/hs
2. Hypotension--resolved
-Likely explaining patient dizziness episode and related to A-fib
-Patient was provided 1 L of normal saline by ER, avoid further IV fluid as patient have history of systolic heart failure
-Hold diuretics with associated renal dysfunction as well
3. Acute kidney injury-- creat improved
-Creatinine elevated to 1.6, baseline close to 0.9-1
- Hold diuretics/metformin/lisinopril
-Already got 1 L of NS in ER
- Follow-up renal functions
4. Chronic systolic congestive heart failure
- No signs of volume overload
- Hold diuretics/part of GDMT due to renal dysfunction
5. Type 2 diabetes mellitus
- Hold metformin/glipizide with new TAO
- maintain on ISS
6. AGAP met acidosis
- minimal and may be from renal dysfunction
- providing one dose of bicarb
DVT PPX - Eliquis
Full code
Anticipated Discharge: Today
Subjective/Interval History
-
Date of Service: December 12, 2024
pt cleared for d/c post SHANIA/CV
Objective Data
-
Labs:
Laboratory Results
12/12/24
04:45
WBC 8.5
Hgb 12.9 L
Hct 38.3 L
Plt Count 193
Sodium 140
Potassium 3.8
Chloride 110 H
Carbon Dioxide 25
BUN 45 H
Creatinine 1.2
Glucose 129 H
Calcium 9.6
Vital Signs:
max temp for 24 hours
12/11/24
22:22
Temp 98.5 F
Vital Signs
Temp Pulse Resp BP Pulse Ox
97.8 F 83 16 111/61 96
12/12/24 07:34 12/12/24 10:00 12/12/24 10:00 12/12/24 10:00 12/12/24 10:00
I&O
12/11/24 12/12/24 12/13/24
06:59 06:59 06:59
Intake Total 480 / 480
Balance 480 / 480
Review of Systems
-
All other systems: Reviewed and negative
Physical Exam
-
General: Well Developed, Well Nourished and No Apparent Distress
HEENT: Normocephalic and Atraumatic
Respiratory: Clear to Auscultation; Negative Wheezes or Rhonchi
Cardiac: Regular Rhythm and S1/S2; Negative Murmur
GI: Soft, Nontender, Nondistended and Normal Bowel Sounds
Musculoskeletal: No Clubbing, No Cyanosis and No Edema
Neuro: Awake and Alert
Psych: Calm
--- NOTE | 2024-12-12 12:32 | PTCARENOTE ---
D/C instructions given to patient and , both verbalizes understanding. INT D/C'd, telemetry de/C'd, personal belongings packed and sent home with patient. D/C to home via wc accompanied by staff.
--- NOTE | 2024-12-12 14:44 | W.DCSUMMARY ---
Discharge Summary
Discharge Data
Date of Admission: 12/11/24
Date of Discharge: 12/12/24
-
Pending Results: No
Hospital Course
Primary care physician : Miryam Rosales
Principal Discharge diagnosis : Paroxysmal atrial fibrillation with rapid ventricular response with hypotension, acute kidney injury
Chronic Discharge diagnosis : Chronic systolic congestive heart failure, type 2 diabetes mellitus
Hospital Course : Patient was a 64-year-old male with coronary artery disease status post stenting earlier this year who was at cardiac rehab and was found to have atrial fibrillation and new onset dizziness. Patient underwent coronary artery cath
and stenting on October 29 and was noted to have an irregular heartbeat at cardiac rehab. He was also having dizziness. He was seen in the emergency department on December 05 for similar issues and was discharged. He was noted to be in atrial fibrillation
and sent in for further evaluation from cardiac rehab.
Problem #1: Paroxysmal atrial fibrillation with rapid ventricular response and hypotension. Hypotension was thought to be due to to the A-fib and not tolerating the rapid ventricular response. Patient was admitted and seen in consultation by
cardiology. He was given 1 L normal saline in the ED. Diuretics were also held. He underwent transesophageal echocardiogram with cardioversion and is A-fib free and has been cleared for discharge by cardiology. Aspirin and Plavix were changed to
Plavix and Eliquis.
Problem #2: Acute kidney injury. Again likely due to to combination of diuretics, metformin, lisinopril and rapid ventricular response. Creatinine peaked at 1.6 and is now normal. Medications were restarted.
Problem #3: All other medical issues. These include Chronic systolic congestive heart failure, type 2 diabetes mellitus. These medical issues were stable during his hospitalization. Medications were continued as able.
Patient is stable for discharge home at this time. If there are any questions regarding this dictation or his hospital stay, please not hesitate to call. Our office number is [phone].
Time for discharge 32 minutes.
Procedure findings :
SHANIA with CARDIOVERSION Technique: The patient was brought to the holding area. Signed informed consent was obtained. A time out was called and performed. The patient was sedated by a member of the anesthesia service. SHANIA was performed and did not
show suggestion of intracardiac thrombus.Anticoagulation status was reviewed and was appropriate. R-2 pads were placed anteriorly and posteriorly. Patient received 3 biphasic synchronized shocks at 200, 300, & 360 J to finally restore sinus rhythm
from atrial fibrillation There were no complications.
Conclusion: Uncomplicated cardioversion from atrial fibrillation to sinus rhythm.
Recommendation: Routine post cardioversion care. 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
Discharge Plan
-
Patient Disposition: Home (Routine Discharge)
Discharge Diagnosis/Procedures: Paroxysmal atrial fibrillation with rapid ventricular response status post transesophageal echocardiogram with cardioversion, resolved hypotension, improved acute kidney injury, chronic systolic congestive heart
failure, type 2 diabetes mellitus
Condition: Good
Diet: Low Cholesterol and 2 Gram Sodium
Activity: As tolerated
Driving Restrictions: No driving for 24 hours
Bathing Restrictions: None
Referrals:
Marshall Braldey MD [Active, Cardiology] - 12/22/24 8:40 am
Referral Note: Cardiology appointment on December 22 at 8:40am
Miryam Rosales DO [Family Provider, Family Practice] - in less than 1 week
Prescriptions:
New
Eliquis 5 mg Tablet
5 mg PO BID Qty: 60 0RF
Continued
glipizide 10 mg Tablet Extended Release 24hr
10 mg PO DAILY
cyanocobalamin (vitamin B-12) 1,000 mcg Tablet
1,000 mcg PO DAILY
therapeutic multivitamin Tablet
1 tab PO DAILY
zinc sulfate 50 mg zinc (220 mg) Tablet
50 mg PO DAILY
omega 5-[id number]-kzk-fish oil [Fish Oil] 1,000 (120-180) mg Capsule
1 cap PO DAILY
metformin 1,000 mg Tablet
1,000 mg PO BID
Visbiome 112.5 billion cell Capsule
1 cap PO DAILY
atorvastatin 40 mg tablet
40 mg PO QPM
clopidogrel 75 mg tablet
75 mg PO DAILY
metoprolol succinate 25 mg tablet extended release 24 hr
25 mg PO HS
lisinopril 2.5 mg tablet
2.5 mg PO DAILY
dapagliflozin propanediol [Farxiga] 10 mg tablet
10 mg PO DAILY
Discontinued
aspirin 81 mg Tablet,Delayed Release (Dr/Ec)
81 mg PO DAILY
cranberry 450 mg Tablet
4,200 mg PO DAILY
Glucosamine Chondroitin 550-30-1 mg Capsule
1 cap PO DAILY
vitamin A 2,400 mcg Capsule
2,400 mcg PO DAILY
garlic 1,000 mg Capsule
1,000 mg PO DAILY
ascorbic acid (vitamin C) [Vitamin C] 500 mg Tablet
1,500 mg PO DAILY
saw palmetto 160 mg Capsule
250 mg PO DAILY
ricardo extract 250 mg Capsule
250 mg PO DAILY
ginkgo biloba 120 mg Tablet
120 mg PO DAILY
cinnamon bark [Cinnamon] 500 mg Capsule
2,000 mg PO DAILY
turmeric 400 mg Capsule
400 mg PO DAILY
furosemide 80 mg tablet
80 mg PO DAILY
Discharge Orders:
Discharge Patient (As Directed); Ordered 12/12/24
Ordered By: Karolina Hopkins
Care Plan Goals
Care Plan Goals:
Problem: Readiness for enhanced knowledge related to diagnosis and treatment plan
Goal: Understand your diagnosis and treatment plan needs, including medications if applicable.
Instructions: Know your diagnosis, underlying causes and treatment plan options, including medications if applicable. Consult with your health care team to learn about your diagnosis and treatment plan, including medications if applicable.
Discharge Date and Time
Discharge Date/Time: 12/12/24 12:39
Print Language: MALTESE
== END 2024-12-12 12:39 | disposition home or self-care (01) | DRG 309 ==
LOC: IVU 13:06
PROVIDERS: Emergency Medicine; Internal Medicine Cardiovascular Disease; ADMITTING PHYSICIAN Hospitalist; ATTENDING PHYSICIAN Internal Medicine; CONSULT PHYSICIAN Student in an Organized Health Care Education/Training Program; EMERGENCY PHYSICIAN Emergency Medicine; FAMILY PHYSICIAN Family Medicine
PROC: B24BZZ4 Ultrasonography of Heart with Aorta, Transesophageal (ICD-10-PCS; 2024-12-12)
PROC: 5A2204Z Restoration of Cardiac Rhythm, Single (ICD-10-PCS; 2024-12-12)
DX: I48.0 Paroxysmal atrial fibrillation (principal); E87.20 Acidosis, unspecified; I50.22 Chronic systolic (congestive) heart failure; N17.9 Acute kidney failure, unspecified; I05.1 Rheumatic mitral insufficiency; E11.65 Type 2 diabetes mellitus with hyperglycemia; I95.9 Hypotension, unspecified; I11.0 Hypertensive heart disease with heart failure; I25.10 Atherosclerotic heart disease of native coronary artery without angina pectoris; E78.5 Hyperlipidemia, unspecified; I42.9 Cardiomyopathy, unspecified; Z96.643 Presence of artificial hip joint, bilateral; Z79.899 Other long term (current) drug therapy; Z79.02 Long term (current) use of antithrombotics/antiplatelets; Z79.01 Long term (current) use of anticoagulants
CPT/HCPCS: 80048; 80053; 82962; 85025; 85027; 85610; 85730; 92960; 93005; 93312; 93320; 93325; 96360; 99285; G0422

== ENCOUNTER → 2024-12-13 09:37 | Outpatient (REF) | payer MEDICARE, SELFPAY ==
[2024-12-13 13:44] LABS: Blood Urea Nitrogen 36 mg/dl (9-20); Calcium 9.9 mg/dl (8.4-10.2); Carbon Dioxide 26 mmol/L (22-30); Chloride 103 mmol/L (98-107); Glucose 180 mg/dl (70-99); Potassium 4.0 mmol/L (3.5-5.1); Sodium 138 mmol/L (135-145); eGFR > 60.00
== END ==
LOC: HWLAB 09:37
PROVIDERS: ATTENDING PHYSICIAN Nurse Practitioner; FAMILY PHYSICIAN Family Medicine
DX: I42.0 Dilated cardiomyopathy (principal); I25.10 Atherosclerotic heart disease of native coronary artery without angina pectoris
CPT/HCPCS: 36415; 80048

== ENCOUNTER 2025-01-03 08:40 | Outpatient (RCR) | payer MEDICARE, SELFPAY ==
[2024-12-06 06:44] LABS: Glucose - Point of Care 240 mg/dl (70-99)
[2024-12-06 07:32] LABS: Glucose - Point of Care 286 mg/dl (70-99)
[2024-12-11 06:32] LABS: Glucose - Point of Care 234 mg/dl (70-99)
[2024-12-11 07:05] LABS: Glucose - Point of Care 258 mg/dl (70-99)
[2024-12-27 06:38] LABS: Glucose - Point of Care 188 mg/dl (70-99)
[2024-12-27 07:31] LABS: Glucose - Point of Care 242 mg/dl (70-99)
[2024-12-29 06:30] LABS: Glucose - Point of Care 178 mg/dl (70-99)
[2024-12-29 07:31] LABS: Glucose - Point of Care 253 mg/dl (70-99)
[2025-01-01 06:33] LABS: Glucose - Point of Care 248 mg/dl (70-99)
[2025-01-01 07:27] LABS: Glucose - Point of Care 263 mg/dl (70-99)
[2025-01-03 06:33] LABS: Glucose - Point of Care 211 mg/dl (70-99)
[2025-01-03 07:31] LABS: Glucose - Point of Care 233 mg/dl (70-99)
== END 2025-01-03 23:59 | disposition home or self-care (01) ==
LOC: CRHB 08:40
PROVIDERS: ATTENDING PHYSICIAN Internal Medicine Cardiovascular Disease
DX: I25.10 Atherosclerotic heart disease of native coronary artery without angina pectoris (principal); Z95.5 Presence of coronary angioplasty implant and graft; I25.2 Old myocardial infarction; I11.0 Hypertensive heart disease with heart failure; I50.22 Chronic systolic (congestive) heart failure
CPT/HCPCS: 82962; G0422

== ENCOUNTER → 2025-01-25 08:38 | Outpatient (REF) | payer MEDICARE, SELFPAY ==
[2025-01-25 12:31] LABS: Hematocrit 38.7 % (39.0-52.0); Hemoglobin 12.9 g/dL (13.0-18.0); Mean Corp Hgb Conc. 33.3 g/dL (33.0-37.0); Mean Corpuscular Volume 93.9 fL (80.0-94.0); Nucleated Red Blood Cells % 0 % (-); Platelet Count 245 10^3/uL (130-400); Red Cell Dist. Width 13.7 % (11.5-14.5)
[2025-01-25 12:44] LABS: ALT (SGPT) 12 U/L (0-50); AST (SGOT) 15 U/L (17-59); Albumin 4.4 g/dl (3.5-5.0); Alkaline Phosphatase 57 U/L (38-126); Blood Urea Nitrogen 31 mg/dl (9-20); Calcium 9.8 mg/dl (8.4-10.2); Carbon Dioxide 27 mmol/L (22-30); Chloride 101 mmol/L (98-107); Glucose 142 mg/dl (70-99); HDL Cholesterol 26 mg/dl; LDL Cholesterol, Calculated 64 mg/dl; Potassium 4.6 mmol/L (3.5-5.1); Sodium 139 mmol/L (135-145); Total Protein 8.0 g/dl (6.3-8.2); Very Low Density Lipoprotein 30 mg/dl (0-30); eGFR > 60.00
[2025-01-25 14:01] LABS: Glycohemoglobin (HgbA1c) 7.3 % (4.0-5.6)
== END ==
LOC: HWLAB 08:38
PROVIDERS: ATTENDING PHYSICIAN Family Medicine
DX: I48.0 Paroxysmal atrial fibrillation (principal); I25.2 Old myocardial infarction; Z71.89 Other specified counseling; Z68.36 Body mass index [BMI] 36.0-36.9, adult; E66.9 Obesity, unspecified; I50.43 Acute on chronic combined systolic (congestive) and diastolic (congestive) heart failure; E11.65 Type 2 diabetes mellitus with hyperglycemia; I10 Essential (primary) hypertension; E78.5 Hyperlipidemia, unspecified; R79.89 Other specified abnormal findings of blood chemistry; H04.123 Dry eye syndrome of bilateral lacrimal glands
CPT/HCPCS: 36415; 80053; 80061; 83036; 84443; 85025

== ENCOUNTER 2025-02-02 08:50 | Outpatient (RCR) | payer MEDICARE, SELFPAY ==
[2025-01-05 06:38] LABS: Glucose - Point of Care 207 mg/dl (70-99)
[2025-01-05 07:30] LABS: Glucose - Point of Care 182 mg/dl (70-99)
[2025-01-17 06:33] LABS: Glucose - Point of Care 170 mg/dl (70-99)
[2025-01-17 07:33] LABS: Glucose - Point of Care 244 mg/dl (70-99)
[2025-01-19 06:29] LABS: Glucose - Point of Care 223 mg/dl (70-99)
[2025-01-19 07:30] LABS: Glucose - Point of Care 257 mg/dl (70-99)
[2025-01-22 06:27] LABS: Glucose - Point of Care 271 mg/dl (70-99)
[2025-01-22 07:28] LABS: Glucose - Point of Care 307 mg/dl (70-99)
[2025-01-24 06:32] LABS: Glucose - Point of Care 177 mg/dl (70-99)
[2025-01-24 07:29] LABS: Glucose - Point of Care 190 mg/dl (70-99)
[2025-01-26 06:29] LABS: Glucose - Point of Care 264 mg/dl (70-99)
[2025-01-26 07:34] LABS: Glucose - Point of Care 248 mg/dl (70-99)
[2025-01-29 06:30] LABS: Glucose - Point of Care 180 mg/dl (70-99)
[2025-01-29 07:28] LABS: Glucose - Point of Care 212 mg/dl (70-99)
[2025-01-31 06:29] LABS: Glucose - Point of Care 172 mg/dl (70-99)
[2025-01-31 07:30] LABS: Glucose - Point of Care 199 mg/dl (70-99)
[2025-02-02 06:30] LABS: Glucose - Point of Care 231 mg/dl (70-99)
[2025-02-02 07:27] LABS: Glucose - Point of Care 276 mg/dl (70-99)
== END 2025-02-02 23:59 | disposition home or self-care (01) ==
LOC: CRHB 08:50
PROVIDERS: ATTENDING PHYSICIAN Internal Medicine Cardiovascular Disease; FAMILY PHYSICIAN Student in an Organized Health Care Education/Training Program
DX: I25.10 Atherosclerotic heart disease of native coronary artery without angina pectoris (principal); Z95.5 Presence of coronary angioplasty implant and graft; I25.2 Old myocardial infarction
CPT/HCPCS: 82962; G0422

== ENCOUNTER 2025-02-23 08:47 | Outpatient (RCR) | payer MEDICARE, SELFPAY ==
[2025-02-07 06:34] LABS: Glucose - Point of Care 169 mg/dl (70-99)
[2025-02-07 07:29] LABS: Glucose - Point of Care 208 mg/dl (70-99)
[2025-02-09 06:34] LABS: Glucose - Point of Care 200 mg/dl (70-99)
[2025-02-09 07:26] LABS: Glucose - Point of Care 263 mg/dl (70-99)
[2025-02-12 06:33] LABS: Glucose - Point of Care 211 mg/dl (70-99)
[2025-02-12 07:31] LABS: Glucose - Point of Care 255 mg/dl (70-99)
[2025-02-14 06:25] LABS: Glucose - Point of Care 198 mg/dl (70-99)
[2025-02-14 07:22] LABS: Glucose - Point of Care 216 mg/dl (70-99)
[2025-02-16 06:28] LABS: Glucose - Point of Care 174 mg/dl (70-99)
[2025-02-16 07:27] LABS: Glucose - Point of Care 234 mg/dl (70-99)
[2025-02-19 06:26] LABS: Glucose - Point of Care 193 mg/dl (70-99)
[2025-02-19 07:26] LABS: Glucose - Point of Care 236 mg/dl (70-99)
[2025-02-23 06:26] LABS: Glucose - Point of Care 247 mg/dl (70-99)
[2025-02-23 07:22] LABS: Glucose - Point of Care 264 mg/dl (70-99)
== END 2025-02-23 23:59 | disposition home or self-care (01) ==
LOC: CRHB 08:47
PROVIDERS: ATTENDING PHYSICIAN Internal Medicine Cardiovascular Disease; FAMILY PHYSICIAN Student in an Organized Health Care Education/Training Program
DX: Z95.5 Presence of coronary angioplasty implant and graft (principal); I25.10 Atherosclerotic heart disease of native coronary artery without angina pectoris
CPT/HCPCS: 82962; G0422

== ENCOUNTER → 2025-03-13 08:18 | Outpatient (REF) | payer MEDICARE, SELFPAY | LOC: HWRCS 08:18 | PROVIDERS: ATTENDING PHYSICIAN Nurse Practitioner Gerontology; FAMILY PHYSICIAN Family Medicine | DX: I50.22 Chronic systolic (congestive) heart failure (principal); I42.0 Dilated cardiomyopathy; I25.10 Atherosclerotic heart disease of native coronary artery without angina pectoris; I48.0 Paroxysmal atrial fibrillation; R42 Dizziness and giddiness | CPT/HCPCS: 93306 ==

== ENCOUNTER → 2025-04-03 09:04 | Outpatient (REF) | payer MEDICARE, SELFPAY ==
[2025-04-03 11:41] LABS: Blood Urea Nitrogen 35 mg/dl (9-20); Calcium 9.8 mg/dl (8.4-10.2); Carbon Dioxide 23 mmol/L (22-30); Chloride 102 mmol/L (98-107); Glucose 138 mg/dl (70-99); HDL Cholesterol 25 mg/dl; LDL Cholesterol, Calculated 64 mg/dl; Sodium 135 mmol/L (135-145); Very Low Density Lipoprotein 36 mg/dl (0-30); eGFR > 60.00
[2025-04-03 11:52] LABS: Potassium 4.3 mmol/L (3.5-5.1)
== END ==
LOC: HWLAB 09:04
PROVIDERS: ATTENDING PHYSICIAN Student in an Organized Health Care Education/Training Program; FAMILY PHYSICIAN Family Medicine
DX: I42.0 Dilated cardiomyopathy (principal); E11.9 Type 2 diabetes mellitus without complications
CPT/HCPCS: 36415; 80048; 80061

== ENCOUNTER → 2025-04-17 14:19 | Outpatient (REF) | payer MEDICARE, SELFPAY | LOC: HWRAD 14:19 | PROVIDERS: ATTENDING PHYSICIAN Family Medicine | DX: M25.511 Pain in right shoulder (principal) | CPT/HCPCS: 73030 ==